=== PATIENT | female | born 1995 | race Caucasian/White ===

== ENCOUNTER 2022-09-05 09:49 | Emergency (ER) | payer OTHER, SELFPAY ==
[2022-09-05 09:53] VITALS: BP 127/86; PULSE 80; RESP 18; TEMP 36.3; O2SAT 97; BMI 43.9
--- NOTE | 2022-09-05 11:09 | CRLHL7_ITS ---
For Patients: As a result of the Century Cures Act, medical imaging exams and procedure reports are released immediately into your electronic medical record. You may view this report before your referring provider. If you have questions, please contact your health care provider. INDICATION: Dysfunctional uterine bleeding TECHNIQUE: Ultrasound pelvis transabdominal and transvaginal for better assessment or to better visualize the endometrium. Real-time sonographic images with spectral and color Doppler imaging of the ovaries were obtained. COMPARISON: None FINDINGS: Uterus: 9.8 x 3.5 x 5.8 cm. Normal echotexture of the myometrium. No masses. Endometrium: Transvaginal imaging was performed to better evaluate the endometrium. Endometrial thickness measures 5 mm. No sign of endometrial mass or fluid. There is likely a small subendometrial cyst in the lower uterine segment. Right ovary measures 3.7 x 1.8 x 1.7 cm and left ovary measures 3.6 x 1.8 x 2.6 cm. There is a likely developing dominant follicle within the left ovary measuring 2.0 centimeters. Otherwise, the left ovary is markedly limited in evaluation due to overlying bowel gas. Normal arterial and venous blood flow is demonstrated in both ovaries. Cul-de-sac: No significant free fluid. IMPRESSION: Limited evaluation of the left ovary due to bowel gas. Likely dominant follicle within the left ovary appreciated. Otherwise, no acute abnormality is seen. Dictated by Adilson Carrasquillo MD @ 09/05/2022 12:45:55 PM (Electronically Signed)
--- NOTE | 2022-09-05 11:11 | ED_ITS ---
HPI - General Adult General Chief complaint: Vaginal Bleeding Stated complaint: Pelvic pain/vaginal bleeding Time Seen by Provider: 09/05/22 10:58 History of Present Illness HPI narrative: This 27-year-old female comes in with recurrent vaginal bleeding. She states that she began having persistent bleeding about 3 months ago. After about 6 weeks of this she saw an OBGYN physician who started her on control pills. This normalized her bleeding for about 2 weeks. She states she is now been bleeding on and off over the past 4 weeks and this morning had a large clot with severe cramping. She passed this clot in her symptoms have improved. Related Data Home Medications Medication Instructions Recorded Confirmed levonorgestrel-ethinyl estradiol 1 tab PO DAILY 09/05/22 09/05/22 0.1 mg-20 mcg tablet (Vienva) semaglutide 0.25 mg or 0.5 mg (2 0.25 mg subcut .09/05/22 09/05/22 mg/1.5 mL) subcutaneous pen injector (Ozempic) Previous Rx's Medication Instructions Recorded medroxyprogesterone 10 mg tablet 10 mg PO TID PRN #20 tabs 09/05/22 (Provera) Allergies Allergy/AdvReac Type Severity Reaction Status Date / Time shrimp Allergy Severe Anaphylaxis Verified 09/05/22 09:59 amoxicillin Allergy Mild hives Verified 09/05/22 09:59 clindamycin Allergy Mild Hives Verified 09/05/22 09:59 Review of Systems Status of ROS: Reports: 10 or more systems reviewed and unremarkable except as noted in History and below Narrative: Constitutional: No fevers, no weight gain or loss. Eyes: No discharge. No vision changes. HENT: No congestion, no sore throat, no ear pain. Cardiovascular: No chest pain, no palpitations. Respiratory: No shortness of breath, no wheezes, no cough. Gastrointestinal: No vomiting, no diarrhea. Crampy abdominal pain as described above. Genitourinary: No dysuria, no hematuria. Dysfunctional vaginal bleeding. Musculoskeletal: Normal range of motion. Skin: No rashes, no pruritis. Neurological: No dizziness, weakness, sensory change, speech change. Endo/Heme/Allergies: No bruising or bleeding. No polydipsia. Pysch: no suicidality, no anxiety, no insomnia. All other systems reviewed and are negative. PFSH PFSH Social History Smoking Status: Never smoker Exam Narrative: Exam Narrative: Constitutional: Well-developed, well-nourished, no acute distress. HEENT: Normocephalic, atraumatic. Neck: Normal range of motion. Nontender. Supple. Heart: Regular. No murmurs. Normal rate. Intact distal pulses. Lungs: Clear to auscultation. No chest discomfort. No wheezes, rhonchi, or rales. Abdomen: Normal bowel sounds. Nontender. No rebound tenderness. Genitalia: Deferred. Back: No midline tenderness. Normal range of motion. Extremities: Normal range of motion. No injury. Skin: Intact. No rash. Warm. No erythema or pallor. Neurologic: No altered sensation. No weakness. Alert and oriented. Psychiatric: No suicidality. No anxiety or depression. No insomnia. Nursing notes and vitals signs are reviewed. Const: Vital Signs, click to edit/add: Vital Signs - 24 hr 09/05/22 09:53 Temperature 97.4 F L Pulse Rate [Right Pulse Oximeter] 80 Respiratory Rate 18 Blood Pressure [Ri ght Upper Arm] 127/86 Pulse Oximetry 97 Oxygen Delivery Me thod Room Air Course Vital Signs Vital signs: Initial Vital Signs Temperature 97.4 F L 09/05/22 09:53 Temperature Source Temporal Artery Scan 09/05/22 09:53 Pulse Rate 80 09/05/22 09:53 Respiratory Rate 18 09/05/22 09:53 Blood Pressure 127/86 09/05/22 09:53 Blood Pressure Mean 99 09/05/22 09:53 Blood Pressure Position Sitting 09/05/22 09:53 Pulse Oximetry 97 09/05/22 09:53 Oxygen Delivery Method 09/05/22 09:53 Vital Signs Temperature 97.4 F L 09/05/22 09:53 Pulse Rate 80 09/05/22 09:53 Respiratory Rate 18 09/05/22 09:53 Blood Pressure 127/86 09/05/22 09:53 Pulse Oximetry 97 09/05/22 09:53 Oxygen Delivery Method 09/05/22 09:53 Temperature 97.4 F L 09/05/22 09:53 Pulse Rate 80 09/05/22 09:53 Respiratory Rate 18 09/05/22 09:53 Blood Pressure 127/86 09/05/22 09:53 Pulse Oximetry 97 09/05/22 09:53 Oxygen Delivery Method 09/05/22 09:53 Medical Decision Making MDM Narrative Medical decision making narrative: This 27-year-old female comes in with dysfunctional uterine bleeding that was significantly worse today. She is taking a low-dose control which helped temporarily. Today her lab results returned with reassuring findings. Her hemoglobin is in normal range. Ultrasound of the pelvis also shows no acute findings that are remarkable. I did speak with the OBGYN physician on-call, Dr. Lal, who recommended follow-up with the primary physician to be on a larger dose of control and for now a prescription of Provera 10 mg is provided. She can take this up to 3 times a day as needed to control or possibly stop the bleeding. Lab Data Labs: Lab Results 09/05/22 09/05/22 09/05/22 Range/Units 11:20 11:20 11:20 WBC 10.93 (4.50-11.00) K/uL RBC 4.92 (4.00-5.20) m/uL Hgb 13.5 (12.0-16.0) gm/dL Hct 42.8 (33.0-51.0) % MCV 87 (80-100) fL MCH 27 (26-34) pg MCHC 32 (32-36) gm/dL RDW Coeff of Juwan 13.0 (11.5-15.5) % Plt Count 331 (140-440) K/uL Neut % (Auto) 77.9 H (42.0-72.0) % Lymph % (Auto) 17.5 L (20-44) % [place] % (Auto) 4.2 (0.0-11.0) % Eos % (Auto) 0.2 (0.0-7.0) % Baso % (Auto) 0.1 (0.0-3.0) % Neut # (Auto) 8.50 H (1.7-7.0) K/uL Lymph # (Auto) 1.90 (0.90-2.90) K/uL [place] # (Auto) 0.50 (0.00-0.90) K/UL Eos # (Auto) 0.02 (0.00-0.50) K/uL Baso # (Auto) 0.01 (0.00-0.30) K/uL Sodium 139 (135-149) mmol/L Potassium 4.4 (3.6-5.1) mmol/L Chloride 108 (96-114) mmol/L Carbon Dioxide 24 (20-32) mmol/L BUN 10 (5-24) mg/dL Creatinine 0.4 L (0.5-1.5) mg/dL Estimated Creat Clear 171.66 Estimated GFR 137 ml/min Glucose 127 H (60-115) mg/dL Calcium 8.7 (8.4-10.6) mg/dL HCG, Qual Negative (Negative) Imaging Data US Pelvic: Radiologist's impression: FINDINGS: Uterus: 9.8 x 3.5 x 5.8 cm. Normal echotexture of the myometrium. No masses. Endometrium: Transvaginal imaging was performed to better evaluate the endometrium. Endometrial thickness measures 5 mm. No sign of endometrial mass or fluid. There is likely a small subendometrial cyst in the lower uterine segment. Right ovary measures 3.7 x 1.8 x 1.7 cm and left ovary measures 3.6 x 1.8 x 2.6 cm. There is a likely developing dominant follicle within the left ovary measuring 2.0 centimeters. Otherwise, the left ovary is markedly limited in evaluation due to overlying bowel gas. Normal arterial and venous blood flow is demonstrated in both ovaries. Cul-de-sac: No significant free fluid. IMPRESSION: Limited evaluation of the left ovary due to bowel gas. Likely dominant follicle within the left ovary appreciated. Otherwise, no acute abnormality is seen. Discharge Plan Discharge Clinical Impression: Dysfunctional uterine bleeding Patient Disposition: Home, Self-Care Condition: Stable Additional Instructions: Take Provera 10 mg up to 3 times a day for dysfunctional uterine bleeding. Follow-up with primary physician to review medications. It is recommended to have a larger dose of control medication. Prescriptions: New medroxyprogesterone [Provera] 10 mg tablet 10 mg PO TID PRNQty: 20 2RF No Action levonorgestrel-ethinyl estrad [Vienva] 0.1-20 mg-mcg tablet 1 tab PO DAILY Ozempic 0.25 mg or 0.5 mg(2 mg/1.5 mL) pen injector 0.25 mg SUBCUT . Label Comments: INJECT 0.25 MG SUBCUTANEOUS ONCE WEEKLY FOR THE 1ST 4 WEEKS. THEN INJECT 0.5 MG SUBCUTANEOUS ONCE WEEKLY FOR WEEKS 5-8 Follow Up/Referrals: Anabel Fernandez MD [Primary Care Provider] - Stand Alone Forms: [employer] Info Instructions
[2022-09-05 11:28] LABS: Basophils Absolute Auto 0.01 K/uL (0.00-0.30); Basophils Percent Auto 0.1 % (0.0-3.0); Eosinophils Absolute Auto 0.02 K/uL (0.00-0.50); Eosinophils Percent Auto 0.2 % (0.0-7.0); Hematocrit 42.8 % (33.0-51.0); Hemoglobin* 13.5 gm/dL (12.0-16.0); Immature Granulocytes Abs Auto 0.01 K/uL (0.00-0.30); Immature Granulocytes Pct Auto 0.1 %; Lymphocytes Percent Auto 17.5 % (20-44); Mean Corpuscular HGB Conc 32 gm/dL (32-36); Mean Corpuscular Hemoglobin 27 pg (26-34); Mean Corpuscular Volume 87 fL (80-100); Monocytes Percent Auto 4.2 % (0.0-11.0); Neutrophils Percent Auto 77.9 % (42.0-72.0); Platelet Count* 331 K/uL (140-440); Red Blood Count 4.92 m/uL (4.00-5.20); White Blood Count* 10.93 K/uL (4.50-11.00)
[2022-09-05 11:30] LABS: Slide Review Reflex No
[2022-09-05 11:40] LABS: Chloride* 108 mmol/L (96-114); Potassium* 4.4 mmol/L (3.6-5.1); Sodium* 139 mmol/L (135-149)
[2022-09-05 11:43] LABS: Blood Urea Nitrogen* 10 mg/dL (5-24); Carbon Dioxide* 24 mmol/L (20-32); Creatinine* 0.4 mg/dL (0.5-1.5); Est. Creatinine Clearance* 171.66; Estimated Glomerular Filt Rate 137 ml/min; Glucose* 127 mg/dL (60-115)
[2022-09-05 11:44] LABS: Calcium* 8.7 mg/dL (8.4-10.6)
[2022-09-05 11:59] LABS: HCG Qualitative Serum* Negative (Negative)
== END 2022-09-05 14:18 | disposition home or self-care (01) ==
PROVIDERS: Emergency Provider Emergency Medicine Emergency Medical Services; PCP Family Medicine
DX: N93.8 Other specified abnormal uterine and vaginal bleeding (principal)
CPT/HCPCS: 36415; 76830; 80048; 84703; 85025; 93976; 99284

== ENCOUNTER 2024-01-23 10:17 | Emergency (ER) | payer OTHER, SELFPAY ==
[2024-01-23 10:19] VITALS: BP 163/94; PULSE 77; RESP 20; TEMP 36.4; O2SAT 98; BMI 44.8
--- NOTE | 2024-01-23 10:49 | ED_ITS ---
HPI - Abdominal Pain General Chief Complaint: Abdominal Pain Stated Complaint: Severe abdominal pain Time Seen by Provider: 01/23/24 10:34 History of Present Illness HPI narrative: This 28-year-old female comes in with rather sudden onset of upper epigastric abdominal pain starting about 90 minutes prior to arrival. She states that she took a injection of Mounjaro and soon after this she began to develop this upper epigastric abdominal pain. She states that she has not had pain like this in the past and thinks that this could be reaction to this medicine. She states that she took a dose of this same medicine a week ago without any symptoms. She states also that she has been on Ozempic in the past and did not have any adverse effects when taking that medicine. She arrives here with normal vital signs except blood pressure is a bit elevated. Related Data Home Medications ?Medication ?Instructions ?Recorded ?Confirmed levonorgestrel-ethinyl estradiol 1 tab PO DAILY 09/05/22 09/05/22 0.1 mg-20 mcg tablet (Vienva) semaglutide 0.25 mg or 0.5 mg (2 0.25 mg subcut .09/05/22 09/05/22 mg/1.5 mL) subcutaneous pen injector (Ozempic) Previous Rx's ?Medication ?Instructions ?Recorded medroxyprogesterone 10 mg tablet 10 mg PO TID PRN #20 tabs 09/05/22 (Provera) hydrocodone 5 mg-acetaminophen 325 1 tab PO Q4-6H PRN pain #20 tabs 01/23/24 mg tablet ketorolac 10 mg tablet 10 mg PO TID 5 days #15 tabs 01/23/24 Allergies Allergy/AdvReac Type Severity Reaction Status Date / Time shrimp Allergy Severe Anaphylaxis Verified 09/05/22 09:59 amoxicillin Allergy Mild hives Verified 09/05/22 09:59 clindamycin Allergy Mild Hives Verified 09/05/22 09:59 Review of Systems Status of ROS Reports: 10 or more systems reviewed and unremarkable except as noted in History and below Narrative Constitutional: No fevers, no weight gain or loss. Eyes: No discharge. No vision changes. HENT: No congestion, no sore throat, no ear pain. Cardiovascular: No chest pain, no palpitations. Respiratory: No shortness of breath, no wheezes, no cough. Gastrointestinal: No vomiting, no diarrhea. She reports some nausea. Upper epigastric abdominal pain as described above. Genitourinary: No dysuria, no hematuria. Musculoskeletal: Normal range of motion. Skin: No rashes, no pruritis. Neurological: No dizziness, weakness, sensory change, speech change. Endo/Heme/Allergies: No bruising or bleeding. No polydipsia. Pysch: no suicidality, no anxiety, no insomnia. All other systems reviewed and are negative. PFSH PFS Social History Smoking Status: Never smoker Non-prescribed substance use: denies use Exam Narrative: Exam Narrative: Constitutional: Well-developed, well-nourished, no acute distress. HEENT: Normocephalic, atraumatic. Neck: Normal range of motion. Nontender. Supple. Heart: Regular. No murmurs. Normal rate. Intact distal pulses. Lungs: Clear to auscultation. No chest discomfort. No wheezes, rhonchi, or rales. Abdomen: Normal bowel sounds. No rebound tenderness. Upper epigastric abdominal pain. Genitalia: Deferred. Back: No midline tenderness. Normal range of motion. Extremities: Normal range of motion. No injury. Skin: Intact. No rash. Warm. No erythema or pallor. Neurologic: No altered sensation. No weakness. Alert and oriented. Psychiatric: No suicidality. No anxiety or depression. No insomnia. Nursing notes and vitals signs are reviewed. Const: Vital Signs, click to edit/add: Vital Signs - 24 hr 01/23/24 10:19 01/23/24 13:00 Temperature 97.6 F Pulse Rate [Right Pulse Oximeter] 77 72 Respiratory Rate 20 18 Blood Pressure [Ri ght Upper Arm] 163/94 H 120/78 Pulse Oximetry 98 98 Oxygen Delivery Me thod Room Air Room Air Course Vital Signs Vital signs: Initial Vital Signs Temperature 97.6 F 01/23/24 10:19 Temperature Source Temporal Artery Scan 01/23/24 10:19 Pulse Rate 77 01/23/24 10:19 Respiratory Rate 20 01/23/24 10:19 Blood Pressure 163/94 H 01/23/24 10:19 Blood Pressure Mean 117 H 01/23/24 10:19 Blood Pressure Position Sitting 01/23/24 10:19 Pulse Oximetry 98 01/23/24 10:19 Oxygen Delivery Method Room Air 01/23/24 10:19 Vital Signs Temperature 97.6 F 01/23/24 10:19 Pulse Rate 77 01/23/24 10:19 Respiratory Rate 20 01/23/24 10:19 Blood Pressure 163/94 H 01/23/24 10:19 Pulse Oximetry 98 01/23/24 10:19 Oxygen Delivery Method Room Air 01/23/24 10:19 Temperature 97.6 F 01/23/24 10:19 Pulse Rate 72 01/23/24 13:00 Respiratory Rate 18 01/23/24 13:00 Blood Pressure 120/78 01/23/24 13:00 Pulse Oximetry 98 01/23/24 13:00 Oxygen Delivery Method Room Air 01/23/24 13:00 Medications Administered Medications: Discontinued Medications Generic Name Dose Route Start Last Admin Trade Name Yanickq PRN Reason Stop Dose Admin Ketorolac Tromethamine 30 mg 01/23/24 11:57 01/23/24 12:30 Ketorolac 30 Mg/Ml Inj IVP 01/23/24 11:58 30 mg ONCE ONE Administration Lidocaine/Aluminum/Magnesium/Simeth 30 ml 01/23/24 10:46 01/23/24 11:34 Gi Cocktail (Visc Lido/Antacid) 30 Ml PO 01/23/24 10:47 30 ml ONCE ONE Administration Ondansetron HCl 4 mg 01/23/24 11:57 01/23/24 12:30 Ondansetron 2 Mg/Ml Inj IVP 01/23/24 11:58 4 mg ONCE ONE Administration MDM - Abdominal Pain MDM Narrative Medical decision making narrative: This patient comes in with abdominal pain as described above. It did seem to be more like a gastritis initially so she did agree to receive a GI cocktail which did not bring any relief for her. At that point an IV was established and labs are acquired. She also received Toradol 30 mg intravenously which brought good relief to her pain. Lab results returned with some elevation of her liver enzymes and direct bilirubin. The patient states that she does not take alcohol. Her lipase is in normal range. An ultrasound of the right upper quadrant is obtained and does show evidence of uncomplicated coli lithiasis. There is no sign of obstruction or infection. I relayed these findings to the patient and recommended follow-up with surgery Clinic for ongoing management of gallstones which may be causing her symptoms today. There are no other findings to explain her symptoms except a new medication, Mounjara for weight loss, that she injected herself with this morning. This was her 2nd dose as it is an injectable medicine once a week. Lab Data Labs: Lab Results 01/23/24 Range/Units 12:22 WBC 8.42 (4.50-11.00) K/uL RBC 4.88 (4.00-5.20) m/uL Hgb 13.5 (12.0-16.0) gm/dL Hct 42.3 (33.0-51.0) % MCV 87 (80-100) fL MCH 28 (26-34) pg MCHC 32 (32-36) gm/dL RDW Coeff of Juwan 13.6 (11.5-15.5) % Plt Count 288 (140-440) K/uL Neut % (Auto) 61.8 (42.0-72.0) % Lymph % (Auto) 30.0 (20-44) % Levy % (Auto) 7.6 (0.0-11.0) % Eos % (Auto) 0.5 (0.0-7.0) % Baso % (Auto) 0.1 (0.0-3.0) % Neut # (Auto) 5.20 (1.7-7.0) K/uL Lymph # (Auto) 2.53 (0.90-2.90) K/uL Levy # (Auto) 0.60 (0.00-0.90) K/UL Eos # (Auto) 0.04 (0.00-0.50) K/uL Baso # (Auto) 0.01 (0.00-0.30) K/uL Abs Immat Gran (auto) 0.00 (0.00-0.30) K/uL Imm/Tot Granulo (auto) 0.0 % Sodium 139 (135-149) mmol/L Potassium 3.7 (3.6-5.1) mmol/L Chloride 105 (96-114) mmol/L Carbon Dioxide 27 (20-32) mmol/L Anion Gap 7 (7-15) mEq/L BUN 9 (5-24) mg/dL Creatinine 0.4 L (0.5-1.5) mg/dL Estimated Creat Clear 170.12 Estimated GFR 136 ml/min Glucose 113 (60-115) mg/dL Calcium 8.7 (8.4-10.6) mg/dL Total Bilirubin 1.1 (0.1-1.5) mg/dL Direct Bilirubin 0.7 H (0.0-0.5) mg/dL AST 145 H (12-35) U/L ALT 97 H (4-35) U/L Alkaline Phosphatase 107 (40-150) U/L Total Protein 7.4 (6.0-8.3) g/dL Albumin 4.3 (3.3-5.0) g/dL Lipase 78 (23-300) U/L Discharge Plan Discharge Clinical Impression: Cholelithiasis Patient Disposition: Home, Self-Care Condition: Improved Additional Instructions: Take medication as needed and indicated. I recommend following up with surgery Clinic for ongoing plans for gallstones. Call [phone] for appointment. Return if worsening. Prescriptions: New hydrocodone-acetaminophen 5-325 mg tablet 1 tab PO Q4-6H PRN (Reason: pain) Qty: 20 0RF ketorolac 10 mg tablet 10 mg PO TID 5 Days Qty: 15 0RF No Action levonorgestrel-ethinyl estrad [Vienva] 0.1-20 mg-mcg tablet 1 tab PO DAILY Ozempic 0.25 mg or 0.5 mg(2 mg/1.5 mL) pen injector 0.25 mg SUBCUT . Patient Comments: INJECT 0.25 MG SUBCUTANEOUS ONCE WEEKLY FOR THE 1ST 4 WEEKS. THEN INJECT 0.5 MG SUBCUTANEOUS ONCE WEEKLY FOR WEEKS 5-8 medroxyprogesterone [Provera] 10 mg tablet 10 mg PO TID PRNQty: 20 2RF Follow Up/Referrals: Anabel Fernandez MD [Referring] - Stand Alone Forms: [employer] Info Instructions
--- OUTSIDE RECORDS SUMMARY | 2024-01-23 10:58 | XMS_ITS | Clinical Summary ---
Author Organization [facility] Address [address], [place] [address] Care Team Providers Care Evp Chief Exploration Officer Name Role Phone Unavailable Primary Care Provider Unavailabl e Source Comments You are receiving this document as you are listed as the primary care provider,follow-up provider, or the patient has been referred to you for consultation.This is in compliance with the Medicare andMedicaid EHR Incentive Program,which states Providers who transition their patient to another setting of careor provider of care or refers their patient to another provider of care shouldprovide summary care record for each transition of care or referral. CX Allergies Active Allergy Reactions Criticality Noted Date Comments Amoxicillin Hives High 11/07/2010 Converted from Generic Allergy: Amoxicillin Clindamycin Hives High 12/19/2014 Medications Medication Sig Dispensed Refills Start Date End Date Status metFORMIN XR (GLUCOPHAGE XR) 500 MG 24 hour release tablet Take 1 Tablet (500 mg) by mouth daily. Active OZEMPIC, 0.25/0.5 MG/DOSE, 2 MG/1.5ML injection Inject subcutaneously. Active norgestimate-ethinyl estradiol (ORTHO TRI-CYCLEN) 0.18/0.215/0.25 MG-35 MCG tablet Take 1 Tablet by mouth daily. 90 Tablet 09/23/2022 Active Active Problems No known active problems Social History Tobacco Use Types Packs/Day Years Used Date Smoking Tobacco: Never Smokeless Tobacco: Never Tobacco Cessation:Counseling Given: Not Answered Sex and Gender Information Value Date Recorded Sex Assigned at Not on file Gender Identity Not on file Sexual Orientation Not on file Last Filed Vital Signs Vital Sign Reading Time Taken Comments Blood Pressure 138/94 11/22/2022 12:10 PM CDT Pulse 91 11/22/2022 12:10 PM CDT Temperature - - Respiratory Rate 16 11/22/2022 12:10 PM CDT Oxygen Saturation 99% 11/22/2022 12:10 PM CDT Inhaled Oxygen Concentration - - Weight - - Height - - Body Mass Index - - Plan of Treatment Health Maintenance Due Date Last Done Comments Cervical Cancer Screening Due 1993 Hep C Screening (Preventive Services) 1993 HIV Screening (Preventive Services) 2009 Adult Preventive Visit 2011 HepB (1) 2012 COVID-19 Vaccine (3 - season) 2023 10/01/2020, 09/03/2020 Influenza (Season Ended) 2024 023, 05/05/2021, 06/20/2020, Additional history exists DTaP/Tdap/Td (8 - Tdap) 08/24/2031 08/24/19 22, 06/27/2011, 01/08/1999, Additional history exists Zoster/Shingles (1 of 2) 2043 Hib Completed 05/25/1996, 09/29, 1993, Additional history exists IPV (Polio) Completed 12/29/1998, 03/1994, 1993, Additional history exists MCV4 Completed 06/27/2011 Pneumococcal Aged Out 07/22/2015 No longer eligi ble based on patient's age to complete this topic HepA Aged Out 11/25/2015, 01/02/2015 No lo nger eligible based on patient's age to complete this topic HPV Vaccine Aged Out No longer eligi ble based on patient's age to complete this topic
[2024-01-23] MEDS: GI COCKTAIL (VISC LIDO/ANTACID) 30 ML PO (11:34)
[2024-01-23] MEDS: ONDANSETRON 2 MG/ML inj 4 MG IVP (12:30)
[2024-01-23] MEDS: KETOROLAC 30 MG/ML inj IVP (12:30)
[2024-01-23 12:36] LABS: Basophils Absolute Auto 0.01 K/uL (0.00-0.30); Basophils Percent Auto 0.1 % (0.0-3.0); Eosinophils Absolute Auto 0.04 K/uL (0.00-0.50); Eosinophils Percent Auto 0.5 % (0.0-7.0); Hematocrit 42.3 % (33.0-51.0); Hemoglobin* 13.5 gm/dL (12.0-16.0); Lymphocytes Absolute Auto 2.53 K/uL (0.90-2.90); Mean Corpuscular HGB Conc 32 gm/dL (32-36); Mean Corpuscular Hemoglobin 28 pg (26-34); Mean Corpuscular Volume 87 fL (80-100); Monocytes Percent Auto 7.6 % (0.0-11.0); Neutrophils Percent Auto 61.8 % (42.0-72.0); Platelet Count* 288 K/uL (140-440); RDW Coefficient of Variation % 13.6 % (11.5-15.5); Red Blood Count 4.88 m/uL (4.00-5.20); White Blood Count* 8.42 K/uL (4.50-11.00)
[2024-01-23 12:40] LABS: Slide Review Reflex No
[2024-01-23 12:44] LABS: Albumin* 4.3 g/dL (3.3-5.0); Chloride* 105 mmol/L (96-114)
[2024-01-23 12:45] LABS: Potassium* 3.7 mmol/L (3.6-5.1); Sodium* 139 mmol/L (135-149)
[2024-01-23 12:47] LABS: Alkaline Phosphatase* 107 U/L (40-150); Anion Gap 7 mEq/L (7-15); Aspartate Amino Transferase* 145 U/L (12-35); Bilirubin Direct* 0.7 mg/dL (0.0-0.5); Bilirubin Total* 1.1 mg/dL (0.1-1.5); Blood Urea Nitrogen* 9 mg/dL (5-24); Carbon Dioxide* 27 mmol/L (20-32); Creatinine* 0.4 mg/dL (0.5-1.5); Est. Creatinine Clearance* 170.12; Estimated Glomerular Filt Rate 136 ml/min; Glucose* 113 mg/dL (60-115); Lipase* 78 U/L (23-300); Total Protein* 7.4 g/dL (6.0-8.3)
[2024-01-23 12:48] LABS: Alanine Aminotransferase* 97 U/L (4-35); Calcium* 8.7 mg/dL (8.4-10.6)
--- NOTE | 2024-01-23 12:55 | CRLHL7_ITS ---
For Patients: As a result of the Century Cures Act, medical imaging exams and procedure reports are released immediately into your electronic medical record. You may view this report before your referring provider. If you have questions, please contact your health care provider. Indication: Upper abdominal pain. Technique: Sonography of the abdomen was performed limited to the structures discussed below Comparison: None Findings: The common bile duct measures 2 millimeters which is normal. Gallbladder wall thickness is normal at 3 millimeters. There is probably a small focal area of adenomyomatosis involving the anterior wall of the gallbladder. Stones are identified within the gallbladder. No pericholecystic fluid and no reported sonographic Adkins`s sign. The liver is normal in size and morphology. Echogenicity is abnormally increased probably due to fatty infiltration. No biliary ductal dilation or focal mass The pancreas was visualized partially and appeared normal. Portions are obscured by bowel gas. The right kidney was unremarkable in size and appearance measuring 14.2 x 4.7 x 6.2 centimeters. Impression: Abnormal hepatic echotexture probably due to fatty infiltration. Cholelithiasis without evidence of acute cholecystitis or common duct obstruction. Probable focal area of adenomyomatosis involving the gallbladder wall incidentally noted. Dictated by Reed Woodward MD @ 01/23/2024 1:52:53 PM (Electronically Signed)
[2024-01-23 13:00] VITALS: BP 120/78; PULSE 72; RESP 18; O2SAT 98
== END 2024-01-23 15:16 | disposition home or self-care (01) ==
PROVIDERS: Emergency Provider Emergency Medicine Emergency Medical Services
DX: K80.80 Other cholelithiasis without obstruction (principal)
CPT/HCPCS: 36415; 76705; 80048; 80076; 83690; 85025; 96374; 96375; 99284; A9270; J1885; J2405

== ENCOUNTER 2024-02-05 08:12 | Day surgery (SDC) | payer OTHER, SELFPAY ==
[2024-02-05] VITALS (15 sets, daily range): BP systolic 106–158; BP diastolic 72–94; PULSE 79–105; RESP 14–16; TEMP 36.1–36.7; O2SAT 90–98; BMI 43.7
[2024-02-05] MEDS: LACTATED RINGERS 1000 ML 1,000 ML 100 ML IV (08:00)
--- OUTSIDE RECORDS SUMMARY | 2024-02-05 08:16 | XMS_ITS | Clinical Summary ---
Author Organization [facility] Address [address] [address] Care Team Providers Care Missile Facilities Repairer Name Role Phone Unavailable Primary Care Provider [...] for each transition of care or referral. [employer] Allergies Active Allergy Reactions Criticality Noted Date [...] Visit 2011 HepB (1) 2012 COVID-19 Vaccine ( season) 2023 10/01/2020, 09/03/2020 Influenza (#1) 2024 08/03/2022, 12/2020, 06/20/2020, Additional history exists DTaP/Tdap/Td (8 - Tdap) 08/24/2031 08/24/19, 06/27/2011, 01/08/1999, Additional history exists Zoster/Shingles (1 [...]
[2024-02-05 08:36] LABS: Ur HCG Qualitative* Negative (Negative)
--- NOTE | 2024-02-05 08:51 | P.GSOP_ITS ---
Operative Note Date of procedure: 02/05/24 Pre-op diagnosis: 1. Biliary colic. 2. Severe obesity with BMI 43. Post-op diagnosis: Same Type of Procedure: 1. Laparoscopic cholecystectomy. Indications: 28-year-old female 5 months was seen in clinic for evaluation of severe sharp and shooting pain in her epigastrium the started after eating fatty breakfast. The pain was radiating to bilateral upper quadrants and to her back. Patient was seen in the emergency room initially. The pain subsided during the ER visit and was mostly dull but then she had another episode of sharp shooting pain while in the emergency room. Since the emergency room visit, patient had at least 2 milder episodes of similar pain in epigastrium that woke her up from sleep at night. Patient denied acid reflux. She did not have any similar episodes of pain during her but states that she did not feel well during her in general. Patient states that for the last few weeks she has not been feeling well in general. She has at least 5 loose stools per day. She has been taking Mounjaro for the past 3 weeks. During her workup she was found to have normal WBC of 8.4. Liver function tests showed direct bilirubin 0.7, total bilirubin was normal, AST 145, ALT 97, normal lipase. Her previous liver function tests on 01/15/2024 were completely normal. A gallbladder ultrasound was obtained that showed cholelithiasis, gallbladder wall was at the upper limits of normal at 2.6 mm, there was no pericholecystic fluid, the liver was noted to be fatty, and there was a small focus of adenomyomatosis at the anterior wall of the gallbladder. Patient's common bile duct was normal. On clinical exam patient had no tenderness to palpation in the right upper quadrant and negative Adkins sign. She had mild tenderness to palpation in epigastrium. Given patient's clinical history and her symptoms, laparoscopic cholecystectomy was recommended. The procedure was discussed in detail. The risks associated procedure including infection, bleeding, injury to intra-abdominal organs, and injury to the common bile duct were all discussed with the patient, and she agreed to proceed. Given patient's normal common bile duct size on ultrasound and absence of pain since her clinic visit, intraoperative cholangiogram was not planned. Procedure Description: After discussing the risks and benefits of the procedure, the patient signed informed consent.? The operative site was marked and the patient was brought to the operating room and placed on the operating table in supine position.? Care was taken to pad the patient's pressure points.?? The patient was then intubated by anesthesia.?? The operative site was then prepped and draped in the usual sterile fashion.? A time-out was then performed. A 5-mm laparoscopy port was placed in the left upper quadrant guided by a 5-mm laparoscope placed into a translucent trochar.~ Passage through the layers of the abdominal wall was visualized with the laparoscope.~ A pneumoperitoneum was established. A 0-degree 5-mm laparoscope was advanced into the abdomen. The abdomen was briefly surveyed, and omental adhesions were noted suprapubically. A 10-mm port were placed infraumbilically and two more 5 mm ports were placed on the right under direct visualization by laparoscope. The camera was then changed to 10 mm 30-degree scope and placed into the abdomen through the 10 mm port. The left upper quadrant port entrance was examined and no injury to intra-abdominal organs was identified. I initially was not able to identify the gallbladder. Subhepatic space was examined and fatty omentum was adherent to entire gallbladder wall. Those fatty omental adhesions were taken down with hook cautery. I was then able to identify a small collapsed gallbladder. The gallbladder was identified, the fundus grasped and retracted cephalad. The infundibulum was grasped and retracted laterally, exposing the peritoneum overlying the triangle of Calot. This was then divided and exposed in a blunt fashion and with hook cautery. The visualization was difficult throughout the case given patient's large fatty liver and collapsed small gallbladder. Common bile duct was not identified but care was taken not to injure it. Cystic artery was identified and tissues around it were dissected off. The cystic artery was clipped with two 5 mm clips on the patient's side and a single clip on the specimen side and divided with scissors. The cystic duct was further skeletonized staying close to the gallbladder infundibulum. The visualized portion of the cystic duct was fairly short and it was clipped with three 5 mm clips on the patient's side and a single clip on the infundibulum. The gallbladder infundibulum was then divided between the clips. The gallbladder was further dissected off the liver with hook cautery. The gallbladder was dissected from the liver bed in retrograde fashion using hookcautery. The gallbladder was placed into an Endo-Catch bag and removed through the infraumbilical incision. Surgical site was examined for bleeding. No bleeding was seen in the surgical field. The fascia of the infraumbilical incision was then closed with 0-0 vicryl using Kelechi Joya needle under direct visualization. Pneumoperitoneum was completely reduced after viewing removal of the trocars under direct vision. The skin was then closed with 4-0 monocryl and steristrips were applied. Instrument, sponge, and needle counts were correct at closure and at the conclusion of the case. The patient was transferred to PACU in stable condition. Findings: Omental adhesions in the inferior abdomen most likely from patient's recent C- section. Omental adhesions to the gallbladder encasing the gallbladder wall. Those were taken down with hook cautery and a collapsed small gallbladder was identified. Anesthesia: GETA Surgeon: Elgin Hagen MD Estimated blood loss (mL): 5 Specimen: Gallbladder Condition: stable Disposition: PACU
--- NOTE | 2024-02-05 08:51 | W.PM.H&PU ---
History & Physical Update History & Physical Update H&P Reviewed and patient assessed: No changes noted
[2024-02-05] MEDS: CEFAZOLIN 2 GM INJ IVP (09:15)
[2024-02-05] MEDS: BUPIVACAINE 0.25% 30 ML INJECTION (10:19)
--- NOTE | 2024-02-05 10:20 | W.ANESCHARGE ---
Anesthesia Charges Start Date/Time Anesthesia Start Date: 02/05/24 Anesthesia Start Time: 09:05 Stop Date/Time Anesthesia Stop Date: 02/05/24 Anesthesia Stop Time: 10:42
[2024-02-05] MEDS: LACTATED RINGERS 1000 ML 1,000 ML 35 ML IV (10:49)
--- NOTE | 2024-02-05 10:55 | W.ANESCHARGE ---
Anesthesia Charges Start Date/Time Anesthesia Start Date: 02/05/24 Anesthesia Start Time: 09:05 Stop Date/Time Anesthesia Stop Date: 02/05/24 Anesthesia Stop Time: 10:42
[2024-02-05] MEDS: fentaNYL 100 MCG/2 ML inj 50 MCG IVP (11:27)
[2024-02-05] MEDS: METOCLOPRAMIDE HCL 5 MG/ML INJ 10 MG IVP (12:15)
== END 2024-02-05 12:55 | disposition home or self-care (01) ==
PROVIDERS: Visit Provider Surgery
PROC: 0FT44ZZ Resection of Gallbladder, Percutaneous Endoscopic Approach (ICD-10-PCS; CPT 47562; principal; 2024-02-05 09:30)
DX: K80.20 Calculus of gallbladder without cholecystitis without obstruction (principal); E66.01 Morbid (severe) obesity due to excess calories; K66.0 Peritoneal adhesions (postprocedural) (postinfection); Z68.41 Body mass index [BMI] 40.0-44.9, adult; E11.9 Type 2 diabetes mellitus without complications
CPT/HCPCS: 47562; 00790; 81025; 82962; 84703; 88304; J0330; J0665; J0690; J1100; J1630; J1885; J2250; J2405; J2704; J2765; J3010; J3490; J7120

== ENCOUNTER 2025-04-02 17:51 | Emergency (ER) | payer OTHER, SELFPAY ==
[2025-04-02 17:54] VITALS: BP 140/82; PULSE 89; RESP 20; TEMP 36.3; O2SAT 98; BMI 43.3
--- OUTSIDE RECORDS SUMMARY | 2025-04-02 17:54 | XMS_ITS | Clinical Summary ---
[facility] Organization [facility] Address [id number] [address] Care Team Providers Care Rn Transfer Name Role Phone Unavailable Primary Care Provider [...] for each transition of care or referral. [facility] [facility] [employer] Allergies Active Allergy Reactions Criticality Noted Date Comments Amoxicillin Hives High 11/07/2010 Converted from Generic Allergy: Amoxicillin Clindamycin Hives High 12/19/2014 Medications metFORMIN XR (GLUCOPHAGE XR) 500 MG 24 hour release tablet Take 1 Tablet (500 mg) by mouth daily. Active OZEMPIC, 0.25/0.5 MG/DOSE, 2 MG/1.5ML injection Inject subcutaneou sly. Active norgestimate-eth inyl estradiol (ORTHO TRI-CYCLEN) 0.18/0.215/0.25 MG-35 MCG tablet Take 1 Tablet by mouth daily. 90 Tablet 09/23/2022 Active Active Problems No known active problems Social History Tobacco Use Types Packs/Day Years Used Date Smoking Tobacco: Never Smokeless Tobacco: Never Tobacco Cessation:Counseling Given: Not Answered Comments Unknown Sex and Gender Information Value Date Recorded Sex Assigned at Not on file Legal Sex Female 11:33 AM CDT Gender Identity Not on file Sexual Orientation [...] Services) 2009 Adult Preventive Visit 2011 HepB Vaccine (1) 2012 HPV Vaccine (1 - 3-dose SCDM series) 2020 COVID-19 Vaccine ( season) 2024 10/01/2020, 09/03/2020 Influenza Vaccine (#1) 2025 , 08/03/2022, 05/05/2021, Additional history exists DTaP/Tdap/Td Vaccine (9 - Tdap) 06/23/2033 06/23/2023, 08/24/2021, 06/27/2011, Additional history exists Zoster/Shingles Vaccine (1 of 2) 2043 Hib Vaccine Completed 05/25/1996, 09/29, 1993, Additional history exists IPV (Polio) Vaccine Completed 12/29/1998, 03/08/1994, 1993, Additional history exists MCV4 Vaccine Completed 06/27/2011 Pneumococcal Vaccine Aged Out 07/22/2015 No long er eligible based on patient's age to complete this topic HepA Vaccine Aged Out 11/25/2015, 01/02/2015 No lo nger eligible based on patient's age to complete this topic Meningococcal B Vaccine Aged Out No l onger eligible based on patient's age to complete this topic Insurance [employer] [facility] [place] [id number]
--- OUTSIDE RECORDS SUMMARY | 2025-04-02 17:54 | XMS_ITS | Clinical Summary ---
Author Organization [employer] [facility] Address [address] [place] [id number] Care Team Providers Care Siebel Consultant Name Role Phone Megan Ayala MD Unavailable Unavailable Aurora Farmer Primary Care Provider Kaia Mascorro RD Unavailable [phone] Luna Moore RN Unavailable [phone] Randa Leon MD Unavailable Allergies Active Allergy Reactions Criticality Noted Date Comments Amoxicillin Hives 11/07/2010 Converted from Generic Allergy: Amoxicillin Clindamycin Hives 12/19/2014 Penicillins Anaphylaxis High 07/07/2012 Shrimp Throat Swelling/Closing High 08/24/2021 Sulfa (Sulfonamide Antibiotics) Hives 11/09/2014 Medications blood-glucose meterIndications :Controlled type 2 diabetes mellitus without complication, without long-term current use of insulin (HC) Dispense meter, test strips, lancets covered by pt ins. E11.9 NIDDM type II - Test 1 time/day 1 Device 12/08/19 21 Active PNV Cmb#[id number] c Acid 14 mg iron- 400 mcg tabIndications:E ncounter for supervision of high risk in first trimester, antepartum (HC) Take 1 Tablet by mouth once daily. 90 Tablet 3 01/14/20 23 Active Accu-Chek Softclix LancetsIndicatio ns:Type 2 diabetes mellitus with other specified complication, without long-term current use of insulin (HC) Dispense item covered by pt ins. O24.319 NIDDM - Test 4 times/day. New medication 100 Each 6 02/15/20 23 Active fluticasone (50 mcg per actuation) nasal solution (FLONASE)Indicat ions:Acute non-recurrent maxillary sinusitis Inhale 2 Sprays in both nostrils once daily. 16 g 3 07/22/20 24 Active docusate (COLACE) 100 mg capsuleIndicatio ns:Chronic constipation Take 1 Capsule (100 mg) by mouth once daily. 90 Capsule 3 07/22/20 24 Active albuterol HFA (ProAir HFA) 90 mcg/actuation inhalerIndicatio ns:Mild persistent asthma with exacerbation (HC) Inhale 2 Puffs by mouth every 6 hours if needed for Shortness of Breath 1st choice. 1 Each 1 07/22/20 24 Active Accu-Chek Guide test strips stripIndications :Type 2 diabetes mellitus with other specified complication, without long-term current use of insulin (HC) USE TO TEST FOUR TIMES DAILY 400 Each 3 12/26/19 25 Active pen needle (Cydney Pen Needle) 32 gauge x 5/32 (disposable insulin pen needle)Indicatio ns:Type 2 diabetes mellitus with other specified complication, without long-term current use of insulin (HC) Inject subcutaneous. For administering insulin at home 4 times per day 200 Each 11 12/27/19 25 Active magnesium 250 mg tab Take 2 Tablets (500 mg) by mouth once daily. 01/04/20 25 Active medication order composer Takes 2 tablets daily containing a total of 1200mg calcium and 40mcg Vitamin D 01/04/20 25 Active acetone (urine) test (Ketostix) stripIndications :Type 2 diabetes mellitus with other specified complication, without long-term current use of insulin (HC) Check every morning for a week, if negative or trace reduce to checking 2-3 days per week. 1 Each 01/07/20 25 Active metFORMIN 500 mg Extended-Release tabletIndication s: with type 2 diabetes mellitus in first trimester (HC) Take 2 Tablets (1,000 mg) by mouth two times daily with meals. 360 Tablet 1 01/11/20 25 Active Dexcom G7 Sensor for continuous blood glucose monitor (CGM)Indications :Type 2 diabetes mellitus without complication, without long-term current use of insulin (HC) To be used to read blood sugars, follow purification operator helper directions. 9 Each 3 01/15/20 25 Active insulin lispro (U-200) (HumaLOG KwikPen Insulin) 200 unit/mL (3 mL) penIndications:P regnancy with type 2 diabetes mellitus in second trimester (HC) Inject 40-45 units subcutaneous three times daily before meals. Max daily dose 200 units. 90 mL 1 03/05/20 25 Active insulin glargine (U-300) (Toujeo Max U-300 SoloStar) 300 unit/mL (3 mL) inpn penIndications:P regnancy with type 2 diabetes mellitus in second trimester (HC) Inject 80 units subcutaneous once daily in the evening. Titrate as directed in up to max dose 150 units per day 24 mL 1 03/05/20 25 Active calcium carbonate/vitami n D2 (CALCIUM + VITAMIN D ORAL) 12/19/19 25 Active aspirin chewable 81 mg tabletIndication s:Maternal obesity syndrome in second trimester (HC) Chew 1 Tablet (81 mg) by mouth once daily with a meal. 100 Tablet 2 03/15/20 25 Active insulin glargine (U-300) (Toujeo Max U-300 SoloStar) 300 unit/mL (3 mL) inpn penIndications:P regnancy with type 2 diabetes mellitus in first trimester (HC) Inject 50 units subcutaneous once daily in the evening. Titrate as directed in up to max dose 150 units per day 18 mL 1 01/11/20 25 025 Discontin ued(Reord er (E-cancel not sent)) insulin lispro (U-200) (HumaLOG KwikPen Insulin) 200 unit/mL (3 mL) penIndications:T ype 2 diabetes mellitus without complication, without long-term current use of insulin (HC) Inject 33 units before meals three times daily. Increase by 2 units every other day if post meal glucose over 140. Max daily dose 180 units 90 mL 02/19/20 25 025 Discontin ued(Reord er (E-cancel not sent)) Active Problems Problem Noted Date Diagnosed Date [facility] Supervision of high-risk Overview (02/07/2025): SRO MPP - Completed [x] Patient name: Nikhil South : 1995 Age: 29 y.o. Date of SRO: 02/07/2025 Estimated Date of Delivery: 08/29/25 Gest Age: 11w0d G/P: Current BMI: 41 Reason for referral: BMI, T2DM REFERRING PROVIDER/CLINIC LOCATION/FAX #: Randa Leon MD - Emanuel Antunez MD approves scheduling of recommended ultrasounds/testing: Yes Please schedule the following: [x] Guadalupe [] Multiples: [] Consult [x] Ultrasound: - Level 2 (including echo) - 75 minutes [] Lab: [] Genetic Counseling [] Before [] After []15 [] 30 []45 []CVS []Amnio [x] BMI > 40 [] Audio Production Manager - Language [] [place] Insurance: Location [employer] [employer] Any [facility] Clinic [] In-person [] Virtual [] Either N/A Comments: RN: Stacy Ellis RN Consulting Engineer: GC: /Provider: Date:02/07/2025 Urgency: @L2 time []Can be sooner [] Can be split Nikhil South : 1995 REFERRING PROVIDER/CLINIC LOCATION/FAX #: Randa Leon MD - Emanuel Antunez MD approves scheduling of recommended ultrasounds/testing: Yes [facility] ULTRASOUND/TESTING PATIENT Support person name: ULTRASOUND TYPE: L2 REASON FOR VISIT: T2DM, BMI > 40 NEXT VISIT ALERTS: Final MIREILLE by LMP LMP Date: Patient's last menstrual period was 11/22/2024 (exact date). MIREILLE: 08/29/25 Early US: Date: 01/16/25 GA: 7w6d MIREILLE: 08/29/25 PrePregnancy Weight: Height: BMI: PLANS & FUTURE APPOINTMENTS: ULTRASOUND/GROWTH PLAN: - Through: - Growth: Next TESTING PLAN: - Testing: Through DELIVERY PLAN: - Scheduled delivery: - Preferred delivery location: PRIMARY DIAGNOSIS: 29 y.o. Estimated Date of Delivery: 08/29/25 T2DM BMI 41 Asthma PCOS Anxiety 08/2023 37w C/S (GHTN) PREVIOUS ULTRASOUNDS: (PCP) ECHO: SPECIALISTS/CONSULTS: Include: Specialty MD Clinic Name Phone# LV [place] and ADDED TO PATIENT CARE TEAM Yes GENETICS: NIPS: AFP: First screen (NT/seq/integ): if positive add .FIRSTABNORMAL Quad screen (Tetra/Triple screen): if positive add .QUADABNORMAL Amniocentesis/CVS: IVF with PGT: Carrier screening: Declines/Not Done CARE COORDINATION: PERTINENT LABS: Labs reviewed? Normal? Blood type: A Rh Positive Antibody screen: Negative PERTINENT MEDS: Insulin Metformin PROCEDURES: IF FGR <10% or EFW <2000 grams: Add FGRPCOM PLAN OF CARE: Original and updated POC PCOS (polycystic ovarian syndrome) 01/10/2025 Supervision of normal 01/03/2025 Overview (01/03/2025): Father of baby's name: Adilson, Medical History: Past Medical History: . Date Anemia at age 17 Anxiety Asthma (HC) Diabetes mellitus (HC) diagnosed age 20; type 2 Migraine headache Polycystic ovary syndrome OB History: OB History Para Term AB Living 3 1 1 0 1 1 SAB IAB Ectopic Multiple Live Births 1 0 0 0 1 # Outcome Date GA Lbr Anant/2nd Weight Sex Type Anes PTL Lv 3 Current 2 Term 09/01/23 37w0d 2.89 kg (6 lb 5.9 oz) M SPINAL SINDY 1 SAB 07/2021 SPONTANEOUS Labs: -PAP: due 11/2025 -Rubella: IgG confirmed yes -Urine Cx: -GTT/Trep/Hgb @ 28w: -GBS @ 36w: Issues: Early GTT indicated: no Hx of thyroid disorder: no ASA indicated-High Risk for preeclampsia: yes Level 2 FAS indicated (pre-preg BMI>30): yes Genetics: NIPT Yes BMI: Body mass index is 40.51 kg/m . Smoker: No HSV: Denies Ultrasounds: 01/08/25 Vaccinations: -Flu Vaccine: 05/23 -COVID-19 Vaccine: x 2, last in 10/18. Denies COVID-19 infection in -RSV Vaccine @ 32-36w: -Tdap @ 28w: -Rhogam @ 28w: A Rh Positive Alerts: -Obesity -Type II DM -H/o GHTN Management: -Ante Testing: -Delivery: PPBC: (Sterilization desired? MA Paperwork [ ]) Type 2 diabetes mellitus wit hout complication, without long-term current use of insulin 07/22/2024 Mild persistent asthma with exacerbation 024 High-risk human papillomavir us (HPV) DNA detected in cervical specimen, not type 16 or 18 09/29/2023 Overview (12/19/2024): 09/2023 NIL/HPV+, HPV 16/18 negative 11/2024 NIL/HPV negative Plan: Pap/HPV testing due 11/2025 Status post primary low transverse sect ion 09/01/2023 Gastroesophageal reflux disease 01/15/2015 Acne 03/27/2008 Estimated Date of Delivery Comme nts Yes 08/29/2025 Based on last me nstrual period of 11/22/2024 (Exact Date) Resolved Problems Problem Noted Date Diagnosed Date Resolved Date History of primary section 09/01/2023 09/01/2023 Gestational hypertension, third trimester 08/17/2023 01/15/2024 Type 2 diabetes mellitus aff ecting in second trimester, antepartum 05/08/2023 01/15/20 24 Maternal morbid obesity in s econd trimester, antepartum 05/08/2023 01/15/2024 [facility] Supervision of high-risk 03/01/2023 01/15/2024 Overview (06/12/2023): Nikhil Little : 1995 [facility] ULTRASOUND/TESTING PATIENT [facility] CONSULT ON 03/09/23 Support person name: Audio Production Manager: No ULTRASOUND TYPE: Growth REASON FOR VISIT: T2DM, BMI >40 NEXT VISIT ALERTS: Final MIREILLE by Early Ultrasound LMP Date: No LMP recorded (lmp unknown). Patient is . Early US: Date: 12/30/22 GA: 4w6dd MIREILLE: 09/22/23 PrePregnancy Weight: 234lb Height: 5'4 BMI: 39.90 PLANS & FUTURE APPOINTMENTS: ULTRASOUND/GROWTH PLAN: 05/08 per ML: -Serial growth ultrasounds every 6 weeks until delivery - Through: - Growth: Next TESTING PLAN: - Testing: Through DELIVERY PLAN: - Scheduled delivery: - Preferred delivery location: PRIMARY DIAGNOSIS: 27 y.o. Estimated Date of Delivery: 09/22/23 Type 2 DM BMI 44 PCOS Asthma Pelvis fracture with screws in place (2011) PREVIOUS ULTRASOUNDS: 05/08/23 20w4d EFW 337 grams, percentile 29 02/03/23 7 week 1 day gestation with an EDC of 09/21/2023. (PCP) ECHO: 05/08/23 Normal Echocardiogram with some limitations Follow up on limited views at the time of next growth ultrasound REFERRING PHYSICIAN/PHONE/LAST UPDATE: Megan Ayala MD Primary MD approves scheduling of recommended ultrasounds/testing: Yes SPECIALISTS/CONSULTS: Endocrinology, DAMION Dunaway, Elijahmancos, Include: Specialty MD Clinic Name Phone# CG NV and ADDED TO PATIENT CARE TEAM Yes GENETICS: NIPT: low risk CARE COORDINATION: PERTINENT LABS: Labs reviewed? Yes Normal? Yes Blood type: A Rh Positive Antibody screen: Negative Latest Reference Range & Units 02/27/23 08:59 HEMOGLOBIN A1C MONITORING (POCT) <=6.4 % 6.0 TSH 0.27 - 4.20 uIU/mL 0.52 T4,FREE 0.93 - 1.70 ng/dL 1.08 PERTINENT MEDS: Insulin Aspirin Metformin PROCEDURES: IF FGR <10% or EFW <2000 grams: Add FGRPCOM PLAN OF CARE: Original and updated POC 05/08/23 per ML -Return to primary provider for continued care. -Serial growth ultrasounds every 6 weeks until delivery -Twice weekly testing with BPP/NSTs alternating with NSTs starting at 32 weeks' gestation. -The patient was directed to schedule with MPP as discussed at their visit today. -Patient directed to schedule at the front desk assistant on the way out, or to call MPP within 2 business days to schedule follow up. -Baseline preeclampsia labs -Since this is complicated by Diabetes, continue daily low dose ASA -Delivery at 39-40 weeks or sooner if clinically indicated 03/09/23 per SA (Consult) Class B-C Diabetic (No comorbid conditions or end organ disease) Reviewed risks for Preeclampsia, delivery, shoulder dystocia, , and complications. risk of hypoglycemia, NICU admission, increased risk of RDS. Folate/PNV supplementation as recommended primary OB. Oral health exam recommended if not done in the past 6 months. Retinal exam if not done in the past 12 months, or as clinically indicated if retinal disease. Care Coordination is offered as resource to primary provider. Met with RN care advocate today. Screen for depression and psychosocial risks/barriers to care throughout and . Plan for delivery based on clinical assessment, level of glycemic control and comorbidities. Insulin is recommended for glycemic control in followed by Refinery Process Engineer.. Recommend regular Diabetes Team follow up Tight glycemic control with regular review of blood sugar logs or CGMS recommended. Obtain baseline Hgb A1c, AST, CBC, Creatinine, & Protein Creatinine Ratio If HgbA1c < 8.5 Level II ultrasound and echo at 20-22 weeks Serial growth ultrasounds at 6-week intervals beginning at 20 weeks. Because of increased risk of delivery complications which correlate to weight and increased risk of macrosomia, a growth scans for delivery planning at 36-38 weeks is recommended. Twice weekly testing BPP/NST alternating with NST beginning at 32 weeks. Low dose ASA 81 mg once daily from 12 weeks to be continued till 37 weeks. Follow up appointment for Level II ultrasound and cardiac ECHO is scheduled with MPP. Planned subsequent growth scans and testing with primary OB provider. Encounter for supervision of normal first , unspecified trimester 01/27/2023 024 Overview (01/27/2023): Gestational age at time of intake: 6w0d Patient preferred name: Nikhil Nina Hx: Hx anxiety; Type 2 diabetes; PCOS; Anemia; Asthma; Migraines; Patient has a cousin that was born with a hole in her heart; Family hx breast cancer (MGM) Concerns this : None OB Hx: OB History Para Term AB Living 2 0 0 0 1 0 SAB IAB Ectopic Multiple Live Births 1 0 0 0 0 # Outcome Date GA Lbr Anant/2nd Weight Sex Delivery Anes PTL Lv 2 Current 1 SAB 07/2021 SPONTANEOUS Early GTT indicated: not applicable Hx of thyroid disorder: no. ASA indicated-High Risk for preeclampsia: yes Level 2 FAS indicated (pre-preg BMI>30): yes Genetic screening: Patient planning on panorama screening BMI: 41.45 >30 recommended weight gain 11-20# If prepregnancy BMI >30: Send to provider for Level II @ MPP Smoker: no HSV: no Ultrasound: Scheduled for 02/03/23 Flu vaccine: 07/2022 COVID-19 vaccine: Moderna COVID-19 booster: (if applicable) Pertussis Vaccine: Peds: Domestic violence screen: Assessed-no concerns Partners name (if applicable): Adilson ASCUS of cervix with negative high risk HPV 05/31/2017 01/28/2021 Overview (12/07/2020): Repeat in 3 years IUD (intrauterine device) in place - [facility] 7 04/06/2022 Morbid obesity with BMI of 40.0-44.9, adult 08/08/2016 07/22/2024 Overview (12/07/2020): Body mass index (BMI) 40.0-44.9, adult Rule activated problem due to BMI 40-44 posted on 08/08 at 09:46 SURVEILLANCE TECHNICIAN. Insulin dependent type 2 arlene betes mellitus, controlled 06/24/2015 01/15/2024 Overview (06/19/2023): Current Outpatient Medications: Accu-Chek Guide test strips strip, Dispense item covered by pt ins. O24.319 NIDDM - Test 4 times/day. New medication, Disp: 150 Each, Rfl: 6 Accu-Chek Softclix Lancets, Dispense item covered by pt ins. O24.319 NIDDM - Test 4 times/day. New medication, Disp: 100 Each, Rfl: 6 acetaminophen (TYLENOL) 325 mg tablet, Take by mouth., Disp: , Rfl: albuterol HFA (ProAir HFA) 90 mcg/actuation inhaler, Inhale 2 Puffs by mouth every 6 hours if needed for Shortness of Breath 1st choice., Disp: 1 Each, Rfl: 1 aspirin chewable 81 mg chewable tablet, Chew 1 Tablet (81 mg) by mouth once daily., Disp: 90 Tablet, Rfl: 3 blood-glucose meter, Dispense meter, test strips, lancets covered by pt ins. E11.9 NIDDM type II - Test 1 time/day, Disp: 1 Device, Rfl: 0 fluticasone propionate (Flovent Diskus) 50 mcg/actuation inhaler, Inhale 1 Puff by mouth two times daily., Disp: 60 Each, Rfl: 0 insulin glargine, U-300, (Toujeo Max U-300 SoloStar) 300 unit/mL (3 mL) inpn pen, Inject 92 units subcutaneous at bedtime. Max dose 120 units per day., Disp: 12 mL, Rfl: 1 insulin lispro, U-200, (HumaLOG KwikPen Insulin) 200 unit/mL (3 mL) pen, Inject 60 units subcutaneous three times daily. Increase as directed (max dose 200 units per day), Disp: 30 mL, Rfl: 1 Insulin [place], Disposable, (Cydney Pen Needle) 32 gauge x 5/32, As directed. To use with insulin, 4 injections per day, Disp: 100 Each, Rfl: 6 metFORMIN sustained release (GLUMETZA) 500 mg tablet, Take 2 tabs at breakfast & one at dinner, Disp: 180 Tablet, Rfl: 3 PNV Cmb#56-Uelo-Pbzgt Acid 14 mg iron- 400 mcg tab, Take 1 Tablet by mouth once daily., Disp: 90 Tablet, Rfl: 3 urine glucose-ketones test strp, As directed. Test first urine void of the day., Disp: 1 Each, Rfl: 0 Medications have been reviewed by me and are current to the best of my knowledge and ability. Migraine headache 06/18/2014 06/19/2023 Encounters Date Type Department Care Team Description 04/02/[facility] [address] [place] [phone] Randa Leon MD Vaginal Bleeding 03/25/2025 8:00 AM CDT Patient Outreach [address] [place] [id number] Luna Moore RN Diabetes (Diabetes education, virtual visit, no vs taken) 03/20/2025 Travel 03/14/2025 9:00 AM CDT OB [facility]counter [facility] [address] [place] [phone] Randa Leon MD Care (16 weeks/MIREILLE:08/29/2025 /Rh+) 03/14/2025 Travel 03/09/2025 Travel 03/05/2025 11:30 AM CDT Telemedicine [address] [place] [address] Andreina Shearer PA Telehealth (No vitals obtained); Diabetes 02/28/2025 Travel 02/18/2025 8:00 AM CDT Patient Outreach [address] [place] [address] Luna Moore RN Telehealth (Diabetes education, virtual visit, no vs taken) 02/18/2025 Orders Only [address] [place] [address] Andreina Shearer PA <No scans attached> 02/13/2025 Nurse Triage [facility] [address] [place] [phone] Randa Leon MD Questions 02/13/2025 Travel 02/11/2025 Orders Only [facility] [address] [place] [phone] Randa Leon MD <No scans attached> 02/11/[address] [facility] [address] [place] [address] Sonja Ferreira HUC Appointment 02/10/2025 11:40 AM CDT Orders Only [facility] [address] [facility] [address] [place] [address] Lab 02/10/2025 Travel 02/07/2025 9:20 AM CDT OB Encounter [facility] [address] [place] [phone] Randa Leon MD Care (Initial OB/11 weeks/MIREILLE:08/29/2024 /Rh+/Genetics); Nurse/Clinic Staff Only (Pt states that she has had some migraines the last couple of days, as well as dizziness ) 02/07/2025 Transcribe Orders [facility] [address] [facility] [address] [place] [address] Randa Leon MD 02/07/2025 Travel 02/06/2025 Travel 02/02/2025 Travel 01/29/2025 8:00 AM CDT Office Visit [facility] [address] [facility] [facility] [address] [place] [address] Tera Narvaez MD Recheck (Right wrist carpal tunnel ) 01/29/2025 Travel 01/28/2025 11:30 AM CDT Patient Outreach [address] [place] [address] Up, Johnathon Gdm 1x1 Follow Telehealth (Diabetes education, virtual visit, no vs taken) 01/24/2025 Travel 01/23/2025 Travel 01/16/2025 1:45 PM CDT Ancillary Procedure [facility] [address] [place] [address] 01/14/2025 11:00 AM CDT Patient Outreach [address] [place] [address] Up, Johnathon Gdm 1x1 Follow Telehealth (Diabetes education, virtual visit, no vs taken) 01/13/2025 Travel 01/10/2025 10:00 AM CDT [facility] [address] [place] [address] Andreina Shearer PA Telehealth (No vitals obtained); Diabetes 01/09/2025 Travel 01/07/2025 Telephone [facility] [address] [place] [phone] Randa Leon MD Appointment 01/06/2025 2:30 PM CDT Patient Outreach [facility] [address] [place] [address] Diabetes (Follow up) 01/05/2025 Travel 01/03/2025 2:00 PM CDT Phone OB Encounter [facility] [address] [facility] [address] [place] [address] Education (OB intake 6w0d ) 01/03/2025 Travel 01/02/2025 Travel 01/01/2025 Travel from Last 3 Months Immunizations Immunization Administration Dates Next Due COVID-19 vaccine (Moderna 100mcg/0.5mL) PF, MDV 10/01/2020,09/03/2020 DTaP 01/08/1999, 5,1993,09/16,1993 Hepatitis A (Adult) 11/25/2015,01/02/2015 Hepatitis B, Unspecified 1997,03/08/1994,1 08/10/1992 Hib Conjugate, Unspecified 05/25/1996,,1993,07/08 INFLUENZA, IIV3 PF (AGE >= 6 MO) 05/21/2024 Influenza Virus, Unspecified 06/07/2012 Influenza, IIV4 08/03/2022,05/05/2021 Influenza, IIV4 (=>6mos) MDV 07/25/2019 Influenza, Injectable, Mdck, Quadrivalent, W/preservative 04/17/2023 Influenza,CCIIV4 PRESERV FREE 06/20/2020 MMR 01/08/1999,08/30/1994 Meningococcal Vaccine (Menactra) 06/27/2011 Pneumococcal Poly,23-Valent (Pneumovax) 07/22/2015 Polio Virus, Unspecified 12/29/1998,0803/1994,1993,07/08 RSV, Bivalent Vaccine Recons tituted (Abrysvo 120MCG/0.5mL) 08/11/2023 Tdap 06/23/2023,08/24/2021,06/27/2011 Tuberculin (PPD) 12/07/2020 Family History Medical History Relation Name Comments Diabetes Father Heart attack Father Hypertension Father Cancer-colon Maternal Aunt Diabetes Maternal Grandfather Heart attack Maternal Grandfather Cancer-breast Maternal Grandmother Cancer-colon Maternal Grandmother Cancer-pancreatic Maternal Grandmother Skin cancer Maternal Grandmother Diabetes Maternal Uncle Alopecia Mother Diabetes Mother Polycystic ovary syndrome Mother Thyroid Disease Mother Heart attack Paternal Grandfather Lung cancer Paternal Grandfather Alcoholism Paternal Grandmother Good Health Son Other Son Chronic ear inf ections Relation Name Status Comments Father Alive Maternal Aunt Alive Maternal Grandfather Maternal Grandmother Maternal Uncle Alive Mother Alive Paternal Grandfather Paternal Grandmother Son Alive Social History Tobacco Use Types Packs/Day Years Used Date Smoking Tobacco: Never Smokeless Tobacco: Never Tobacco Cessation:Counseling Given: Not Answered Alcohol Use Standard Drinks/Week Comments Not Currently 0 (1 standard drink = 0.6 oz pur e alcohol) None since PHQ-2 Answer Date Recorded PHQ-2 TOTAL SCORE 0 02/07/2025 Social Connections Answer Date Recorded Do you often feel lonely or isolated from those around you? 0 11/24/2024 Financial Resource Strain Answer Date R ecorded Difficulty of Paying Living Expenses 3 11/24/2024 Difficulty of Paying Living Expenses Not on file 11/24/2024 Food Insecurity Answer Date Recorded Do you worry your food will run out before you are able to buy more? 1 11/24/2024 Transportation Needs Answer Date Record ed Does lack of transportation keep you from medica l appointments? 1 11/24/2024 Does lack of transportation keep you from work, meetings or getting things that you need? 1 11/24/2024 Housing Stability Answer Date Recorded What is your housing situation today? 1 11/24/2024 Interpersonal Safety Answer Date Record ed Are you being hit, kicked, p ushed or yelled at (see row info)? No 09/01/2023 Interpersonal Safety Abuse 12 - 18 Not on file 09/01/2023 Interpersonal Safety Ambulatory Vulnerability No t on file 09/01/2023 Utilities Answer Date Recorded Do you have trouble paying f or utilities (for example, heat, electricity, water, phone)? 1 11/24/2024 Estimated Date of Delivery Comme nts Yes 08/29/2025 Based on last me nstrual period of 11/22/2024 (Exact Date) Sex and Gender Information Value Date Recorded Sex Assigned at Female 01/10/2021 10:41 PM CDT Legal Sex Female 4:49 PM CDT Gender Identity Female 01/10/2021 10:41 PM CDT Sexual Orientation Straight 01/10/2021 10 :41 PM CDT Obstetrics History Para Term AB IAB SAB Ectopic Multiple Livin g Live Births 3 1 1 0 1 0 1 0 0 1 1 Date Outcome GA Total Labor Labor/2nd/3rd Weight Sex Type Anes PTL Sindy A1 A5 Name Clin SAB SPONTA NEOUS 2023 Term 37w 0d 0h 01m 0h 01m 2.89 kg (6 lb 5.9 oz) M C-Sect ion Spinal Livin g 8 8 Bb Dayne Valenzuela and Cadence Conley MD Complications:None Delivery Location:Hospital ( [facility] 1999 L&D TRIAGE) Current Summary Episode Dates Number of Fetuses Estimated Date of Delivery 01/03/2025 - Present (04/02/2025) 1 08/29/2025 (set by Eren Reynolds RN on 01/03/2025 based on Last Menstrual Period on 11/22/2024 (Exact Date)) Dating Summary Based On MIREILLE GA Diff Last Menstrual Period on 11/22/2024 (Exact Date) 08/29/2025 Working Ultrasound on 01/16/2025 08/29/2025 Same GA:7w6d Alternate MIREILLE Entry 08/29/2025 Same Overview and Plan :Guadalupe Support person:Wilbur on, Vitals Pregravid Weight Height TWG (As of 04/02/2025) Pregrav id BMI 1.626 m (5' 4) Notes Progress Notes - OB Encounte r - 03/14/2025 - GA:16w0d 03/14/2025 - 16w0d - Randa Davenport MD Routine Obstetrical APPOINTMENT- @ 16weeks S: Nikhil is a 29y.o. @ 16 wega her for KARAN appt today. Doing well. Reports decrease in frequency of headaches Denies VB/LOF/Cramping/CTX. Reports flutters O: BP 120/62 (Cuff Site: Right Arm, Position: Sitting, Cuff Size: Adult Large) Wt 113.4 kg (250 lb) LMP 11/22/2024 (Exact Date) BMI 42.91 kg/m Gen: Well appearing in NAD Abd; Gravid @ 16 wega V-SCAN Visible Aquatic Fetus FCA visualized FHT's; 156 A/P: 29 y.o. @ 16 wega doing well Supervision of high risk in 2nd trimester --PNL WNL to date --DET US due at next visit --RH POS RI Pre-Existing Type II Dm on Insulin --Followed by Endocrinology --Baseline A1c 6.6% Maternal Obesity --Compliant wit Baby ASA 81 mg po daily --Plan BID AT @ 32 weeks along with Serial growth scans H/O --Undecided on TOLAC versus RLTCS for Mode of Delivery RTC in 4 weeks for next KARAN appt Reviewed labor precautions Preeclampsia precautions given Third trimester bleeding precautions given Progress Notes - OB Encounte r - 02/07/2025 - GA:11w0d 02/07/2025 - 11w0d - Randa Davenport MD Ms. Nikhil South is a 29 y.o. at 11w2d who is here today for her first care visit. Patient's last menstrual period was 11/22/2024 (exact date). A first trimester ultrasound was performed. Dating is based on LMP and 1st TM US and Nikhil has perfect dating giving an Estimated Date of Delivery: 29 AUG 2024 She has felt ok so far. Reports some increased headaches frequency with know history of migraines. Recommended Tylenol and we can also consider Fioricet if indicated. Labs: LABS [facility] Resulted Labs: Recent Labs 09/01/23 0545 ABORH A Rh Positive No results for input(s): HGB, PLT in the last 6720 hours. No results for input(s): RPR, TREPONEPALLI, RUBELLAIGG, HBSAG, [id number] in the last 6720 hours. OB History Para Term AB Living 3 1 1 0 1 1 SAB IAB Ectopic Multiple Live Births 1 0 0 0 1 # Outcome Date GA Lbr Anant/2nd Weight Sex Type Anes PTL Lv 3 Current 2 Term 09/01/23 37w0d 2.89 kg (6 lb 5.9 oz) M SPINAL SINDY Name: Kolby Little Apgar1: 8 Apgar5: 8 1 SAB 07/2021 SPONTANEOUS Her past gynecologic history: Patient's last menstrual period was 11/22/2024 (exact date). Last Pap smear: WNL-NOVEMBER 2024-Repeat in 12 months History of abnormal: Yes History of STD: Denies Contraceptive History: OCP's Past Medical History: . Date Anemia at age 17 Anxiety Asthma (HC) Diabetes mellitus (HC) diagnosed age 20; type 2 Migraine headache Polycystic ovary syndrome Past Surgical History: . Laterality Date SECTION 08/2023 CYST REMOVAL From neck. In childhood PELVIC FRACTURE TX WISDOM TEETH EXTRACTION Family History Problem Relation Age of Onset Thyroid Disease Mother Diabetes Mother Polycystic ovary syndrome Mother Alopecia Mother Diabetes Father Hypertension Father Heart attack Father Cancer-colon Maternal Aunt Diabetes Maternal Uncle Cancer-breast Maternal Grandmother 51 Cancer-pancreatic Maternal Grandmother Cancer-colon Maternal Grandmother Skin cancer Maternal Grandmother Diabetes Maternal Grandfather Heart attack Maternal Grandfather Alcoholism Paternal Grandmother Heart attack Paternal Grandfather Lung cancer Paternal Grandfather Good Health Son Other (Other) Son Chronic ear infections Social History Socioeconomic History Marital status: Spouse name: Adilson South Tobacco Use Smoking status: Never Smokeless tobacco: Never Vaping Use Vaping status: Never Used Substance and Sexual Activity Alcohol use: Not Currently Comment: None since Drug use: Never Sexual activity: Yes Partners: Male Comment: Partner Adilson, currently Other Topics Concern Service No Blood Transfusions No Caffeine Concern No Occupational Exposure No Hobby Hazards No Sleep Concern No Stress Concern No Weight Concern No Special Diet Yes Comment: diabetic Back Care No Exercise Yes Seat Belt Yes Social History Narrative No hindu or cultural practices identified that would affect care per patient. Anabel Medina RN 03/09/2023 10:38 AM Nikhil works for [employer]. She is to Adilson. They share son Jani, and are expecting baby #2 in July 2025! Eren Reynolds RN Women's Health Triage ........ 01/03/2025 2:34 PM Allergies Allergen Reactions Penicillins Anaphylaxis Shrimp Throat Swelling/Closing Amoxicillin Hives Converted from Generic Allergy: Amoxicillin Clindamycin Hives Sulfa (Sulfonamide Antibiotics) Hives Current Outpatient Medications Medication Sig Dispense Refill Accu-Chek Guide test strips strip USE TO TEST FOUR TIMES DAILY 400 Each 3 Accu-Chek Softclix Lancets Dispense item covered by pt ins. O24.319 NIDDM - Test 4 times/day. New medication 100 Each 6 acetone (urine) test (Ketostix) strip Check every morning for a week, if negative or trace reduce to checking 2-3 days per week. 1 Each 0 albuterol HFA (ProAir HFA) 90 mcg/actuation inhaler Inhale 2 Puffs by mouth every 6 hours if needed for Shortness of Breath 1st choice. 1 Each 1 blood-glucose meter Dispense meter, test strips, lancets covered by pt ins. E11.9 NIDDM type II - Test 1 time/day 1 Device 0 healthfinch G7 Sensor for continuous blood glucose monitor (CGM) To be used to read blood sugars, follow purification operator helper directions. 9 Each 3 docusate (COLACE) 100 mg capsule Take 1 Capsule (100 mg) by mouth once daily. 90 Capsule 3 fluticasone (50 mcg per actuation) nasal solution (FLONASE) Inhale 2 Sprays in both nostrils once daily. 16 g 3 insulin glargine (U-300) (Toujeo Max U-300 SoloStar) 300 unit/mL (3 mL) inpn pen Inject 50 units subcutaneous once daily in the evening. Titrate as directed in up to max dose 150 units per day 18 mL 1 insulin lispro (U-100) (HumaLOG KwikPen Insulin) 100 unit/mL Inject under the skin 15 units before meals, hold if not eating. Titrate as directed in , up to 150 units per day. 150 mL 1 magnesium 250 mg tab Take 2 Tablets (500 mg) by mouth once daily. medication order composer Takes 2 tablets daily containing a total of 1200mg calcium and 40mcg Vitamin D metFORMIN 500 mg Extended-Release tablet Take 2 Tablets (1,000 mg) by mouth two times daily with meals. 360 Tablet 1 pen needle (Cydney Pen Needle) 32 gauge x 5/32 (disposable insulin pen needle) Inject subcutaneous. For administering insulin at home 4 times per day 200 Each 11 PNV Cmb#57-Tiug-Xhrio Acid 14 mg iron- 400 mcg tab Take 1 Tablet by mouth once daily. 90 Tablet 3 No current facility-administered medications for this visit. Medications have been reviewed by me and are current to the best of my knowledge and ability. REVIEW OF SYSTEMS: Comprehensive review of systems was performed and is negative aside from that which is mentioned in the HPI. Physical Exam BP 130/60 (Cuff Site: Right Arm, Position: Sitting, Cuff Size: Adult Large) Ht 1.626 m (5' 4) Wt 109.3 kg (241 lb) LMP 11/22/2024 (Exact Date) BMI 41.37 kg/m GEN: alert, oriented, no apparent distress LUNGS: non labored breathing HEART: no peripheral edema ABDOMEN: The abdomen is soft without tenderness, guarding, mass, rebound or organomegaly. PELVIC EXAM: External genitalia: normal external genitalia, urethra, Bartholin's and Marianna's glands, anus and perineum are normal. Vagina: normal, moist, rugated, without lesion, tenderness, or masses Cervix: Normal appearing, smooth, without lesion. Uterus: bimanual examination confirms midline, appropriately size mobile uterus without masses Adnexa: normal; no palpable masses or tenderness LYMPHATICS: No lymphadenopathy in the inguinal areas. NEUROLOGIC: No motor or sensory deficits. PSYCH: answers and asks questions appropriately, appropriate affect SKIN: no concerning rashes or lesions DEPRESSION SCREEN PHQ Score and Severity Date of PHQ exam: 02/07/25 PHQ-2 TOTAL SCORE: 0 PHQ-9 TOTAL SCORE: 2 Depression Severity Level: noneIntervention: Not Depressed ASSESSMENT/PLAN ICD-10-CM 1. Supervision of other high risk pregnancies, first trimester () O09.891 GC CHLAMYDIA TRACH PROBE VARICELLA-ZOSTER V AB, IGG CBC W PLT NO DIFF URINE CULTURE TYPE AND SCREEN RUBELLA IMMUNE STATUS TREPONEMA PALLIDUM HBSAG (HBS) ANTI HCV ANTI HIV 1/2 DNA SCREEN SEND OUT HEMOGLOBIN A1C AMB CONSULT TO MATERNAL- MEDICINE ALT (SGPT) AST (SGOT) PROTEIN/CREAT RATIO,URINE CREATININE 2. Pre-existing diabetes mellitus in in first trimester () O24.311 HEMOGLOBIN A1C AMB CONSULT TO MATERNAL- MEDICINE ALT (SGPT) AST (SGOT) PROTEIN/CREAT RATIO,URINE CREATININE 3. Screening, , for malformation by ultrasound () Z36.3 AMB CONSULT TO MATERNAL- MEDICINE 4. Maternal obesity syndrome in first trimester () O99.211 AMB CONSULT TO MATERNAL- MEDICINE 5. H/O: Z98.891 29y.o. @ 11w+2d with Guadalupe IUP Oriented to practice Aneuploidy screening is reviewed, Desires NIPT with Sex Confirmation GDM and GHTN/PreE reviewed baseline PRE-E labs ordered--Baby ASA will be initiated at 11 wega Supervision of other high risk in 1st trimester --PNL ordered today --DET US with ECHO ordered today --Genetics reviewed and orders placed for NIPT Pre-Existing Type II DM -- Followed by Endocrinology -- Most recent A1c-5.7 on 22 JUL 2024 -- A1C ordered today with labs -- Plan BID APT and Seria; Growth AMA --Will be complaint with Baby ASA 81 mg po daily H/O- --Undecided regarding urdolph of delivery likely leaning towards RLTCS Maternal Obesity complicating --Planning on Baby ASA 81 mg po daily --Plan serial growth scans H/O Migraines --Not currently on prescribed medication --Discussed possibly starting Fioricet if indicated --Cleared to utilize Tylenol 1000 mg po q 6h not to exceed 300 mg in a 24 hour period Strict 1st and 2nd trimester bleeding precautions given All questions answered, follow-up in 4 weeks Randa Leon MD .................... 02/09/2025 7:44 AM Progress Notes - Phone OB En counter - 01/03/2025 - GA:6w0d 01/03/2025 - 6w0d - Eren Reynolds RN Patient to see Dr. Leon at 11w0d Daytime Ph#: OK for detailed msg: Yes * Beta HCG Drawn: x 2 * US: 01/08/25 * Medical Hx: asthma, Type II DM, migraines, anxiety, anemia, C/S x 1, SAB x 1, PCOS, GHTN * Rubella IgG confirmed: yes * Early GTT indicated: not applicable * Patients LMP: 11/22/24 Regular * MIREILLE: 08/29/25 * Gestational Age @ Intake Visit: 6w0d * Sequential Screen, Integrated, First trimester screen, Panorama Testing, Cystic Fibrosis Screening pamphlet/info reviewed. Pt instructed on timing of test, scheduling information and advised to verify coverage with insurance carrier prior to testing. Patient will call if testing is desired. Discussed follow-up steps if patient were to have a positive screen. Understanding verbalized. * OB visit summary/clinic info, nausea/vomiting tips, safe OTC medications in and frequently asked questions material reviewed with patient. * Smoking Cessation information given to patient: N/A * Denies History of (+) test/culture MDRO/ Multi drug resistant organisms. This represents: VRE, MRSA & ESBL Domestic Violence Screen: Completed, patient feels safe SYMPTOMS: Missed period My Chart: active and accessible Flu Vaccine: 05/23 COVID-19 Vaccine: x 2, last in 10/18. Denies COVID-19 infection in Eren Reynolds RN Women s Health Triage ........ 01/03/2025 2:34 PM Last Filed Vital Signs Vital Sign Reading Time Taken Comments Blood Pressure 120/62 03/14/2025 8:55 AM CDT Pulse 79 07/22/2024 3:35 PM SURVEILLANCE TECHNICIAN Temperature 36.6 C (97.9 F) 09/06/2023 2:15 PM SURVEILLANCE TECHNICIAN Respiratory Rate 16 09/06/2023 2:15 PM SURVEILLANCE TECHNICIAN Oxygen Saturation 98% 07/22/2024 3:35 PM SURVEILLANCE TECHNICIAN Inhaled Oxygen Concentration - - Weight 113.4 kg (250 lb) 03/14/2025 8:55 AM CDT Height 162.6 cm (5' 4) 02/07/2025 9:32 AM CDT Body Mass Index 42.91 02/07/2025 9:32 AM CDT Plan of Treatment Upcoming Encounters Date Type Department Care Team (Late st Contact Info) Description 04/10/2025 12:[address] [facility] [address] [place] [address] Andreina [place]arer [place] [address] [place] [id number] 04/11/2025 8:20 AM CDT OB Encounter [facility] [address] [place] [phone] Randa Leon MD [address] [place] [id number] 04/14/2025 2:15 PM CDT Appointment [facility] [address] [place] [id number] 04/28/2025 8:00 AM CDT Patient Outreach [facility] [address] [place] [address] Luna Moore RN [address] [place] [id number] 04/29/2025 4:00 PM CDT Office Visit [facility] [address] [facility] [address] [place] [address] Yesi Kumar MD [address] [facility] [address] [place] [address] 05/08/2025 1:[address] [facility] [address] [place] [address] Andreina Shearer PA [address] [place] [address] [place] [address] 05/09/2025 9:00 AM CDT OB Encounter [facility] [address] [place] [address] [place] [phone] Randa Leon MD [address] [place] [address] [place], [place] [address] 06/02/2025 3:30 PM SURVEILLANCE TECHNICIAN Telemedicine [facility] [address] [place] [address] [place] [address] Andreina Shearer PA [address] [place] [address] 06/06/2025 9:00 AM SURVEILLANCE TECHNICIAN OB Encounter [facility] [address] [place] [address] [place] [phone] Randa Leon MD [address] [place] [address] [place] [address] 06/16/2025 9:00 AM SURVEILLANCE TECHNICIAN Telemedicine [facility] [address] [place] [address] Andreina Shearer PA [address] [place] [phone] 06/30/2025 3:30 PM SURVEILLANCE TECHNICIAN Telemedicine [facility] [address] [place] [address] Andreina Shearer PA [address] [place] [address] 07/04/2025 9:00 AM SURVEILLANCE TECHNICIAN OB Encounter [facility] [address] [place] [phone] Randa Leon MD [address] [place] [address] [place] [address] 07/21/2025 9:20 AM SURVEILLANCE TECHNICIAN OB Encounter [facility] [address] [facility] [address] [place] [address] Cadence Conley MD [address] [facility] [address] [facility] [address] [place] [address] 07/28/2025 10:00 AM SURVEILLANCE TECHNICIAN Telemedicine [facility] [address] [place] [address] Andreina Shearer PA [address] [place] [id number] 08/01/2025 9:00 AM SURVEILLANCE TECHNICIAN OB Encounter [facility] [address] [place] [address] [place] [phone] Randa Leon MD [address] [facility] [address] [place] [address] [place] [id number] 08/08/2025 9:00 AM SURVEILLANCE TECHNICIAN OB Encounter [facility] [address] [facility] [address] [place] [address] [place] [phone] Randa Leon MD [address] [facility] [address] [place] [address] [place] [address] 08/11/2025 8:30 AM SURVEILLANCE TECHNICIAN Telemedicine [facility] [address] [place] [address] [place] [address] Andreina Shearer PA [address] [place] [id number] 08/25/2025 8:30 AM SURVEILLANCE TECHNICIAN Telemedicine [facility] [address] [place] [address] Andreina Shearer PA [address] [place] [address] [place] [id number] Health Maintenance Due Date Last Done Comments Pneumococcal series for age 6-49 (2 of 2 - PCV) 07/22/2016 07/22/2015 COVID-19 vaccine series (3 - season) 2025 10/01/2020, 09/03/2020 Influenza Vaccine (#1) 2025 4, 04/17/2023, 08/03/2022, Additional history exists Pap test for age 21-65 11/29/2025 5, 11/29/2024, 10/17/2023, Additional history exists BMI (ht and wt on same day) for age 18+ 02/07/2026 02/07/2025, 01/03/2025, 07/22/2024, Additional history exists Depression screening for age 12+ 02/07/2026 02/07/2025, 07/25/2024, 07/22/2024, Additional history exists Tetanus booster 06/23/2033 06/23/2023, 08/01, 06/27/2011 Hepatitis B series for 19+ Completed 05/04, 03/08/1994, 1993 RSV vaccine for adults or Completed 08/11/2023 HIV for age 15-65 Completed 02/10/2025, 01/13/2023 Hepatitis C screening for ag e 18-79 Completed 02/10/2025, 01/13/2023 Procedures Procedure Name Priority Date/Time Associated Diagnosis Comments PROTEIN/CREAT RATIO,URINE STAT 02/10/2025 12:03 PM CDT Supervision of other high risk pregnancies, first trimester (HC) Pre-existing diabetes mellitus in in first trimester (HC) URINE CULTURE Routine 02/10/2025 12:03 PM CDT Supervision of other high risk pregnancies, first trimester (HC) URINE ALBUMIN TO CREATININE RATIO, RANDOM Routine 02/10/2025 12:03 PM CDT Type 2 diabetes mellitus with hyperglycemia, with long-term current use of insulin (HC) T4,FREE Routine 02/10/2025 11:46 AM CDT COMP METABOLIC PANEL Routine 02/10/2025 11:46 AM CDT Type 2 diabetes mellitus with hyperglycemia, with long-term current use of insulin (HC) LIPID PANEL W REFLEX MEASURED LDL Routine 02/10/2025 11:46 AM CDT Type 2 diabetes mellitus with hyperglycemia, with long-term current use of insulin (HC) TSH WITH REFLEX Routine 02/10/2025 11:46 AM CDT Type 2 diabetes mellitus with hyperglycemia, with long-term current use of insulin (HC) VARICELLA-ZOSTER V AB, IGG Routine 02/10/2025 11:46 AM CDT Supervision of other high risk pregnancies, first trimester (HC) CBC W PLT NO DIFF Routine 02/10/2025 11: 46 AM CDT Supervision of other high risk pregnancies, first trimester (HC) RUBELLA IMMUNE STATUS Routine 02/10/2025 11:46 AM CDT Supervision of other high risk pregnancies, first trimester (HC) HBSAG (HBS) Routine 02/10/2025 11:46 AM CDT Supervision of other high risk pregnancies, first trimester (HC) ANTI HCV Routine 02/10/2025 11:46 AM CDT Supervision of other high risk pregnancies, first trimester (HC) ANTI HIV 1/2 Routine 02/10/2025 11:46 AM CDT Supervision of other high risk pregnancies, first trimester (HC) HEMOGLOBIN A1C Routine 02/10/2025 11:45 AM CDT Supervision of other high risk pregnancies, first trimester (HC) Pre-existing diabetes mellitus in in first trimester (HC) TYPE & SCREEN Routine 02/10/2025 11:44 AM CDT Supervision of other high risk pregnancies, first trimester (HC) TREPONEMA PALLIDUM Routine 02/10/2025 11 :44 AM CDT Supervision of other high risk pregnancies, first trimester (HC) DNA SCREEN SEND OUT Routine 02/10/2025 12:00 AM CDT Supervision of other high risk pregnancies, first trimester (HC) GC CHLAMYDIA TRACH PROBE Routine 02/07/2025 9:20 AM CDT Supervision of other high risk pregnancies, first trimester (HC) US OB 1ST TRI SINGLE TA Routine 01/16/2025 1:52 PM CDT History of miscarriage, currently (HC) HPV HIGH RISK Routine 11/29/2024 2:12 PM CDT Cervical high risk HPV (human papillomavirus) test positive from Last 3 Months or Most Recently Relevant to Health Maintenance Results * PROTEIN/CREAT RATIO,URINE (02/10/2025 12:03 PM CDT) PROTEIN QUANT,RAND URINE <6 1 - 14 mg/dL 02/10/2025 8:57 PM CDT [facility] CREAT,RANDOM URINE 60.5 28.0 - 217.0 mg/dL 02/10/2025 8:57 PM CDT [facility] PROT/CREAT RATIO,UR 02/10/2025 8:57 PM CDT [facility] Comment:Urine Protein below measurement range, unable to calculate. Urine URINE SPECIMEN / Unknown Non-Blood / Unknown 02/10/2025 12:03 PM CDT 02/10/2025 12:03 PM CDT Randa Leon MD URINE Final Result [facility] [address] [place] [address], * (ABNORMAL) URINE CULTURE (02/10/2025 12:03 PM CDT) Pathologist [facility] CULTURE RESULT(A) 02/12/2025 1:32 PM CDT [facility] CULTURE 50,000-100,000 CFU/mL Enterococcus faecalis 02/12/2025 1:32 PM CDT [facility] Comment: Levofloxacin susceptibilities for Enterococcus available upon request for urine isolates ONLY. Levofloxacin is not routinely recommended for Enterococcus and can ONLY be used for infections isolated in the urinary tract. In the setting of polymicrobial urine cultures, Enterococcus often represents colonization and may not necessitate treatment. CULTURE <10,000 CFU/mL Multiple organisms probable contaminants 02/12/2025 1:32 PM CDT [facility] Urine URINE SPECIMEN / Unknown Non-Blood / Unknown 02/10/2025 12:03 PM CDT 02/10/2025 12:03 PM CDT Narrative Organism Antibiotic Method Susceptibility Enterococcus faecalis AMPICILLIN <=2: S Enterococcus faecalis NITROFURANTOIN <=16: S Randa Leon MD MICROBIOLOGY Final Result Performing Organization Address [facility]/ZIP Co de Phone Number [facility] [address] [place] [address], * URINE ALBUMIN TO CREATININE RATIO, RANDOM (02/10/2025 12:03 PM CDT) ALB RAND URINE <12.0 mg/L 02/10/2025 9:20 PM CDT [facility] CREATININE,URINE 0.61 g/L 02/11/20 9:20 PM CDT [facility] ALBUMIN TO CREATININE RATIO,RAND UR 02/10/2025 9:20 PM CDT [facility] Comment:Urine Albumin below measurement range, unable to calculate. Urine URINE SPECIMEN / Unknown Non-Blood / Unknown 02/10/2025 12:03 PM CDT 02/10/2025 12:03 PM CDT Narrative [facility] - 02/10/2025 9:20 PM CDT If Albumin to Creatinine Ratio is elevated, consider the following: Elevations seen with incipient nephropathy associated with diabetes mellitus or hypertension. Stress, exercise,hematuria, and urinary tract infection may also produce elevated results. If clinically indicated, confirm with 24 Hour Albumin to Creatinine Ratio. Andreina VIRGEN URINE Final Result Performing Organization Address [facility]/ZIP Co de Phone Number [facility] [address] [place] [address], * VARICELLA-ZOSTER V AB, IGG (02/10/2025 11:46 AM CDT) VARICELLA ZOSTER VIRUS ANTIBODY (IGG) 5.93 S/CO Performance Indicator [facility] Comment: Signal to Cut-off S/CO Interpretation --------- <1.00 Negative - Antibody not detected > or = 1.00 Positive - Antibody detected A positive result indicates that the patient has antibody to VZV but does not differentiate between an active or past infection. The clinical diagnosis must be interpreted in conjunction with the clinical signs and symptoms of the patient. This assay reliably measures immunity due to previous infection but may not be sensitive enough to detect antibodies induced by vaccination. Thus, a negative result in a vaccinated individual does not necessarily indicate susceptibility to VZV infection. A more sensitive test for vaccination-induced immunity is Varicella Zoster Virus Antibody Immunity Screen, ACIF. Blood BLOOD SPECIMEN / Unknown 02/10/2025 11:46 AM CDT 02/10/2025 11:47 AM CDT Randa Leon MD LABORATORY Final Result Performing Organization Address City/[facility]/ZIP Co de Phone Number [email or web address] [address] [address], [facility] [address] [place] [address] * (ABNORMAL) TSH WITH REFLEX (02/10/2025 11:46 AM CDT) Pathologist [facility] TSH W/REFLEX TO FT4 0.18(L) mIU/L [facility] Comment: Reference Range > or = 20 Years 0.40-4.50 Ranges First trimester 0.26-2.66 Second trimester 0.55-2.73 Third trimester 0.43-2.91 Blood BLOOD SPECIMEN / Unknown 02/10/2025 11:46 AM CDT 02/10/2025 11:47 AM CDT Andreina VIRGEN CHEMISTRY Final Result Performing Organization Address City/[facility]/ZIP Co de Phone Number [email or web address] [facility] [address] [facility] [place] [address], [facility] [address] [place] [address] * (ABNORMAL) LIPID PANEL W REFLEX MEASURED LDL (02/10/2025 11:46 AM CDT) CHOLESTEROL, TOTAL 148 <200 mg/dL [facility] HDL CHOLESTEROL 48(L) > OR = 50 mg/dL [facility] TRIGLYCERIDES 169(H) <150 mg/dL [facility] LDL-CHOLESTEROL 73 mg/dL (calc) [facility] Comment: Reference range: <100 Desirable range <100 mg/dL for primary prevention; <70 mg/dL for patients with CHD or diabetic patients with > or = 2 CHD risk factors. LDL-C is now calculated using the Wander calculation, which is a validated novel method providing better accuracy than the Friedewald equation in the estimation of LDL-C. Scotty FAJARDO et al. JAN. 2013;310(19): 0189-4086 (http://education.Unifyo/faq/TID009) CHOL/HDLC RATIO 3.1 <5.0 (calc) [facility] NON HDL CHOLESTEROL 100 <130 mg/dL (calc) [facility] Comment: For patients with diabetes plus 1 major ASCVD risk factor, treating to a non-HDL-C goal of <100 mg/dL (LDL-C of <70 mg/dL) is considered a therapeutic option. Blood BLOOD SPECIMEN / Unknown 02/10/2025 11:46 AM CDT 02/10/2025 11:47 AM CDT Andreina VIRGEN CHEMISTRY Final Result [email or web address] [facility] [address] [place] [address], [employer] [address] [place] [address] * RUBELLA IMMUNE STATUS (02/10/2025 11:46 AM CDT) RUBELLA AB (IGG), IMMUNE STATUS 2.08 Index [facility] Comment: Index Interpretation ----- <0.90 Not consistent with immunity 0.90-0.99 Equivocal > or = 1.00 Consistent with immunity The presence of rubella IgG antibody suggests immunization or past or current infection with rubella virus. Blood BLOOD SPECIMEN / Unknown 02/10/2025 11:46 AM CDT 02/10/2025 11:47 AM CDT Randa Leon MD SEND OUTS Final Result Performing Organization Address [facility] Co de Phone Number [email or web address] [address] [address], [employer] [facility] [address] [place] [address] * HBSAG (HBS) (02/10/2025 11:46 AM CDT) HEPATITIS B SURFACE ANTIGEN NON-REACTI VE NON-REACTI VE [employer] Comment: For additional information, please refer to http://education.DesignArt Networks/faq/PVT995 (This link is being provided for informational/ educational purposes only.) Blood BLOOD SPECIMEN / Unknown 02/10/2025 11:46 AM CDT 02/10/2025 11:47 AM CDT Randa Leon MD SEND OUTS Final Result Performing Organization Address [facility]/ZIP Co de Phone Number [email or web address] [facility] [address] [place] [address], [facility] [address] [place] [address] * ANTI HCV (02/10/2025 11:46 AM CDT) HEPATITIS C ANTIBODY NON-REACTI VE NON-REACT BERNABE [facility] Comment: HCV antibody was non-reactive. There is no laboratory evidence of HCV infection. In most cases, no further action is required. However, if recent HCV exposure is suspected, a test for HCV RNA (test code 22471) is suggested. For additional information please refer to http://education.DesignArt Networks/faq/AIV87i5 (This link is being provided for informational/ educational purposes only.) Blood BLOOD SPECIMEN / Unknown 02/10/2025 11:46 AM CDT 02/10/2025 11:47 AM CDT Randa Leon MD SEND OUTS Final Result [email or web address] [facility] [address] [place] [address], [employer] [facility] [address] [place] [address] * CBC W PLT NO DIFF (02/10/2025 11:46 AM CDT) WHITE BLOOD CELL COUNT 8.8 3.8 - 10.8 Thousand/u L [facility] ( RED BLOOD CELL COUNT 4.50 3.80 - 5.10 Million/uL [facility] ( HEMOGLOBIN 12.5 11.7 - 15.5 g/dL [facility] ( HEMATOCRIT 38.2 35.0 - 45.0 % [facility] ( MCV 84.9 80.0 - 100.0 fL [facility] ( MCH 27.8 27.0 - 33.0 pg [facility] ( MCHC 32.7 32.0 - 36.0 g/dL [facility] ( Comment: For adults, a slight decrease in the calculated MCHC value (in the range of 30 to 32 g/dL) is most likely not clinically significant; however, it should be interpreted with caution in correlation with other red cell parameters and the patient's clinical condition. RDW 13.6 11.0 - 15.0 % [facility] ( PLATELET COUNT 269 140 - 400 Thousand/u L [facility] ( MPV 9.1 7.5 - 12.5 fL [facility] ( Blood BLOOD SPECIMEN / Unknown 02/10/2025 11:46 AM CDT 02/10/2025 11:47 AM CDT Randa Leon MD HEMATOLOGY Final Result Performing Organization Address City/[facility]/ZIP Co de Phone Number [facility] [address] [place] [address], [place] [facility] ( [address] [place] [address] * ANTI HIV 1/2 (02/10/2025 11:46 AM CDT) HIV FINAL INTERPRETATOIN [facility] Comment: HIV Negative HIV-1 antigen and HIV-1/HIV-2 antibodies were not detected. There is no laboratory evidence of HIV infection. HIV AG/AB, 4TH GEN NON-REACT BERNABE NON-REACT BERNABE [facility] Blood BLOOD SPECIMEN / Unknown 02/10/2025 11:46 AM CDT 02/10/2025 11:47 AM CDT Randa Leon MD SEND OUTS Final Result Performing Organization Address City/[facility]/ZIP Co de Phone Number [facility] [address] [place] [address], [place] [phone] [facility] [address] [place] [address] * T4,FREE (02/10/2025 11:46 AM CDT) T4, FREE 1.1 0.8 - 1.8 ng/dL [facility] 02/10/2025 11:4 6 AM CDT 02/10/2025 11:47 AM CDT us Randa Leon MD CHEMISTRY Final Result [facility] [address] [place] [address], [place] [phone] [facility] [address] [place] [address] * (ABNORMAL) COMP METABOLIC PANEL (02/10/2025 11:46 AM CDT) GLUCOSE 141(H) 65 - 99 mg/dL [facility] Comment: Fasting reference interval For someone without known diabetes, a glucose value >125 mg/dL indicates that they may have diabetes and this should be confirmed with a follow-up test. UREA NITROGEN (BUN) 6(L) 7 - 25 mg/dL [facility] CREATININE 0.39(L) 0.50 - 0.97 mg/dL [facility] EGFR 136 > OR = 60 mL/min/1.7 3m2 [facility] BUN/CREATININE RATIO 15 6 - 22 (calc) [facility] SODIUM 138 135 - 146 mmol/L [facility] POTASSIUM 4.1 3.5 - 5.3 mmol/L [facility] CHLORIDE 103 98 - 110 mmol/L [facility] CARBON DIOXIDE 26 20 - 32 mmol/L [facility] CALCIUM 8.8 8.6 - 10.2 mg/dL [facility] PROTEIN, TOTAL 6.3 6.1 - 8.1 g/dL [facility] ALBUMIN 3.5(L) 3.6 - 5.1 g/dL [facility] GLOBULIN 2.8 1.9 - 3.7 g/dL (calc) [facility] ALBUMIN/GLOBULIN RATIO 1.3 1.0 - 2.5 (calc) [facility] BILIRUBIN, TOTAL 0.3 0.2 - 1.2 mg/dL [facility] ALKALINE PHOSPHATASE 46 31 - 125 U/L [facility] AST 11 10 - 30 U/L [facility] ALT 9 6 - 29 U/L [facility] Blood BLOOD SPECIMEN / Unknown 02/10/2025 11:46 AM CDT 02/10/2025 11:47 AM CDT Andreina VIRGEN CHEMISTRY Final Result [facility] [address] [place] [address], [facility] [address] [place] [address] * (ABNORMAL) HEMOGLOBIN A1C (02/10/2025 11:45 AM CDT) HEMOGLOBIN A1C 6.6(H) <5.7 % [facility] Comment: For someone without known diabetes, a hemoglobin A1c value of 6.5% or greater indicates that they may have diabetes and this should be confirmed with a follow-up test. For someone with known diabetes, a value <7% indicates that their diabetes is well controlled and a value greater than or equal to 7% indicates suboptimal control. A1c targets should be individualized based on duration of diabetes, age, comorbid conditions, and other considerations. Currently, no consensus exists regarding use of hemoglobin A1c for diagnosis of diabetes for children. Blood BLOOD SPECIMEN / Unknown 02/10/2025 11:45 AM CDT 02/10/2025 11:46 AM CDT Randa Leon MD CHEMISTRY Final Result [facility] [address] [place] [address], [place] [phone] [employer] [address] [place] [address] * TREPONEMA PALLIDUM (02/10/2025 11:44 AM CDT) TREPONEMA PALLIDUM Non-Reacti ve Non-Reacti ve 02/10/2025 6:31 PM CDT [facility] Blood BLOOD SPECIMEN / Unknown [facility] / Unknown 02/10/2025 11:44 AM CDT 02/10/2025 11:44 AM CDT Randa Leon MD SEND OUTS Final Result [facility] [address] [place] [address], * TYPE AND SCREEN (02/10/2025 11:44 AM CDT) Pathologist [facility] ABORH A Rh Positive 02/10/2025 7:09 PM CDT [facility] BLOOD BANK ANTIBODY SCREEN Negative Negative 02/10/2025 7:09 PM CDT [facility] BLOOD BANK SPECIMEN EXPIRATION DATE/TIME 02/13/25 23:59 02/10/2025 7:09 PM CDT [facility] Blood BLOOD SPECIMEN / Unknown [facility] / Unknown 02/10/2025 11:44 AM CDT 02/10/2025 11:44 AM CDT Randa Leon MD BLOOD BANK Final Result [facility] [address] [place] [address], [place] [phone] * DNA SCREEN SEND OUT (02/10/2025 12:00 AM CDT) Other BLOOD SPECIMEN / Unknown Randa Leon MD SEND OUTS Final Result * GC CHLAMYDIA TRACH PROBE (02/07/2025 9:20 AM CDT) CHLAMYDIA PROBE Negative 12:44 PM CDT [facility] N GONORRHOEAE PROBE Negative 02/08/2025 12:44 PM CDT [facility] Other VAGINAL SWAB / Unknown Non-Blood / Unknown 02/07/2025 9:20 AM CDT 02/07/2025 1:19 PM CDT Randa Leon MD MICROBIOLOGY Final Result [facility] [address] [place] [address], [place] * US OB 1ST TRI SINGLE TA (01/16/2025 1:52 PM CDT) Anatomical Region Laterality Modality , 1ST TRIMESTER Ultrasound Impressions 01/16/2025 1:57 PM CDT 1. Guadalupe, viable, intrauterine . 2. Ultrasound EDC is 08/29/2025 with a gestational age of 7 weeks 6 days. 3. No adnexal masses are seen. Jing Lamar DO 01/16/2025 1:56 PM [facility] [address] [facility] [address] Narrative 01/16/2025 1:57 PM CDT Table formatting from the original result was not included. For Patients: Results are automatically released to your [employer] ([employer]) account once available, in compliance with federal regulations. This means that you may see your results before your provider has had a chance to review them. Please allow 2-3 business days for your provider to comment on the results. Early Ultrasound Date of exam: 01/16/2025 Indication for exam: 1. History of miscarriage, currently (HC) Requesting Provider: Randa Leon MD TECHNIQUE: Transabdominal scan was performed. Transvaginal scan was not performed. FINDINGS: The uterus is normal size. The myometrium is homogeneous. There are no myomas noted. The right ovary is normal in appearance. The left ovary is normal in appearance. Free fluid in the cul de sac: none There is a single, intrauterine . The crown-rump length is 1.4 cm. These measurements correspond to a 7 week 6 day gestation with an EDC of 08/29/2025. The yolk sac is identified, appears normal, and measures 2.2 mm. heart activity is present with a rate of 156 beats per minute. Randa Leon MD [place] Final Result * HPV HIGH RISK (11/29/2024 2:12 PM CDT) TYPE 16 Negative Negative 12/04/2024 12:23 PM CDT [facility] TYPE 18 Negative Negative 12/04/2024 12:23 PM CDT [facility] OTHER HIGH RISK TYPES Negative Negative 12/04/2024 12:23 PM CDT [facility] Other (Cervical/Vagina l) Non-Blood / Unknown 11/29/2024 2:12 PM CDT 12/02/2024 12:05 PM CDT Narrative [facility] - 12/04/2024 12:23 PM CDT HPV types 16, 18, 31, 33, 35, 39, 45, 51, 52, 56, 58, 59, 66 and 68 DNA were undetectable or below the pre-set threshold. Methodology: Dustin Wally 4800 HPV Test Randa Leon MD MICROBIOLOGY Final Result [facility] [address] [address], from Last 3 Months or Most Recently Relevant to Health Maintenance Insurance [employer] Advance Directives * Full Code (Latest Code Status on File) Date Activated Date Inactivated Comments 09/01/2023 5:27 AM 09/04/2023 4:24 PM Question Answer Comments Code Status Discussion: Reviewed Preferences Care Teams Siebel Consultant Relationship Specialty [place] [address] [place] [address] PCP - General Physician Cash On Delivery Clerk 05/09/23 Megan Ayala MD Obstetrics and Gynecology 01/27/[address] [place] [address] [place] [address] Learning Manager Hat Sprayer 01/06/25 5 Luna Moore RN [address] [place] [address] Learning Manager Registered Nurse 01/14/25 09/21/25 Randa Leon MD [address] [place] [address] Referring Provider Obstetrics and Gynecology 02/07/25
--- NOTE | 2025-04-02 17:57 | CRLHL7_ITS ---
For Patients: As a result of the Century Cures Act, medical imaging exams and procedure reports are released immediately into your electronic medical record. You may view this report before your referring provider. If you have questions, please contact your health care provider. INDICATION: Vaginal bleeding in . TECHNIQUE: Ultrasound OB pelvis transabdominal. Real-time cuba-scale imaging of the fetus was performed as well as color Doppler and spectral Doppler analysis of the umbilical artery. COMPARISON: None. FINDINGS: Intrauterine gestation: Single. heart rate: 180 bpm. Presentation: Cephalic. Placenta: Anterior without previa. Cervix: Closed measuring cm. Amniotic fluid: Normal with a deepest pocket of 4 cm. Other: Subchorionic hemorrhage suspected near the lower uterine segment measuring 3 x 2 x 2 cm. IMPRESSION.: Viable intrauterine . Suspected subchorionic hemorrhage measuring 3 x 2 x 2 cm. Nonspecific tachycardia. No other abnormality evident. Dictated by Valdemar Torres MD @ 04/02/2025 8:26:57 PM (Electronically Signed)
[2025-04-02 18:16] VITALS: BP 134/76
[2025-04-02 18:28] LABS: Hematocrit* 37.6 % (33.0-51.0); Hemoglobin* 12.0 gm/dL (12.0-16.0); Immature Granulocytes Pct Auto 0.2 %; Mean Corpuscular HGB Conc 32 gm/dL (32-36); Mean Corpuscular Hemoglobin 28 pg (26-34); Mean Corpuscular Volume 88 fL (80-100); RDW Coefficient of Variation % 13.6 % (11.5-15.5); Red Blood Count* 4.28 m/uL (4.00-5.20); White Blood Count* 11.36 K/uL (4.50-11.00)
[2025-04-02 18:31] LABS: Immature Granulocytes Abs Auto 0.00 K/uL (0.00-0.30); Lymphocytes Absolute Auto 3.70 K/uL (0.90-2.90); Slide Review Reflex No
--- NOTE | 2025-04-02 18:40 | ED_ITS ---
HPI - General Adult General Chief complaint: Vaginal Bleeding <Kavita Leos MD - Last Filed: 04/02/25 20:04> Stated complaint: 18.5 weeks and bleeding <Kavita Leos MD - Last Filed: 04/02/25 20:04> Time Seen by Provider: 04/02/25 17:55 <Kavita Leos MD - Last Filed: 04/02/25 20:04> Source: patient <Kavita Leos MD - Last Filed: 04/02/25 20:04> Mode of arrival: ambulatory <Kavita Leos MD - Last Filed: 04/02/25 20:04> Limitations: no limitations <Kavita Leos MD - Last Filed: 04/02/25 20:04> History of Present Illness HPI narrative: 29-year-old female, G2 P 118 weeks comes in today with vaginal bleeding. He states that about an hour ago she had an episode where she blood through her pants. She has been having cramping on and off today. No other systemic symptoms. She does have a history of gestational hypertension in her 1st and she is a type 2 diabetic. In the last hour she has not soaked through a pad. <Kavita Leos MD - Last Filed: 04/02/25 20:04> Related Data Home medications: Home Medications ?Medication ?Instructions ?Recorded ?Confirmed docusate sodium 100 mg capsule 100 mg PO QDAY 01/31/24 02/05/24 (Colace) magnesium oxide 500 mg PO QDAY 01/31/24 07/03/23 norgestimate-ethinyl estradiol 1 tab PO QDAY 02/02/24 02/05/24 0.18mg/0.215mg/0.25mg-0.035mg(28)tablet (Tri-Sprintec (28)) calcium carb-ergocalciferol (vit 2 tab PO 02/05/24 D2) 600 mg calcium-200 unit tablet aspirin 81 mg tablet,delayed 81 mg PO DAILY 04/02/25 0 04/02/25 release (Adult Aspirin Regimen) insulin glargine U-300 conc 300 unit subcut 04/02/25 unit/mL (3 mL) subcutaneous pen (Toujeo Max U-300 SoloStar) insulin lispro 100 unit/mL subcut 04/02/25 subcutaneous pen insulin lispro 200 unit/mL (3 mL) subcut 04/02/25 subcutaneous pen (Humalog KwikPen U-200 Insulin) metformin 500 mg tablet,extended mg PO 04/02/25 release 24 hr <Kavita Leos MD - Last Filed: 04/02/25 20:04> Allergies/adverse reactions: Allergies Allergy/AdvReac Type Severity Reaction Status Date / Time shrimp Allergy Severe Anaphylaxis Verified 02/05/24 08:21 amoxicillin Allergy Mild hives Verified 02/05/24 08:21 clindamycin Allergy Mild Hives Verified 02/05/24 08:21 Penicillins Allergy Unknown Verified 04/02/25 17:59 Sulfa (Sulfonamide Allergy Unknown Verified 04/02/25 17:59 Antibiotics) <Kavita Leos MD - Last Filed: 04/02/25 20:04> Review of Systems Status of ROS: Reports: 10 or more systems reviewed and unremarkable except as noted in History and below <Kavita Leos MD - Last Filed: 04/02/25 20:04> [facility] Surgical History: Surgical History History of delivery ?Z98.891 - History of uterine scar from previous surgery (ICD-10) H/O pelvic surgery ?Z98.890 - Other specified postprocedural states (ICD-10) <Kavita Leos MD - Last Filed: 04/02/25 20:04> Social History: Social History Narrative: Patient denies smoking. 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 Smoking Status: Never smoker Do you use any of these nicotine containing products: None How often do you have a drink containing alcohol: never AUDIT-C Alcohol total score: 0 Non-prescribed substance use: denies use Caffeine: Yes Are you using contraception or practicing any form of control: Yes <Kavita Leos MD - Last Filed: 04/02/25 20:04> Exam Narrative: Exam Narrative: Obese, well-developed patient in no acute distress. Alert and oriented. Answers questions appropriately. Mood and affect are appropriate. Thoughts are goal oriented and rational. No tangential or magical thinking noted. Patient speaks in full sentences without needing to catch her breath. HEENT: Normocephalic atraumatic. Extraocular muscles are intact. Conjunctivae are moist without any icterus noted. Moist mucous membranes. Cardiovascular: Heart is regular rate and rhythm S1 and S2 are present without any murmurs. Lungs: Clear to auscultation bilaterally no wheezes rhonchi or rales are appreciated. Patient takes deep breaths without any discomfort. Abdomen: Soft and nontender nondistended with normal bowel sounds. Extremities: Bilateral lower extremities are without edema. Skin: Visible skin is well perfused without any rashes. <Kavita Leos MD - Last Filed: 04/02/25 20:04> Const: Vital Signs, click to edit/add: Vital Signs - 24 hr 04/02/25 17:54 04/02/25 18:16 Temperature 97.4 F L Pulse Rate [Pulse Oximeter] 89 Respiratory Rate 20 Blood Pressure [Ri ght Upper Arm] 140/82 H 134/76 Pulse Oximetry 98 Oxygen Delivery Me thod Room Air <Kavita Leos MD - Last Filed: 04/02/25 20:04> Vital Signs, click to edit/add: Vital Signs - 24 hr 04/02/25 17:54 04/02/25 18:16 Temperature 97.4 F L Pulse Rate [Pulse Oximeter] 89 Respiratory Rate 20 Blood Pressure [Ri ght Upper Arm] 140/82 H 134/76 Pulse Oximetry 98 Oxygen Delivery Me thod Room Air <Rohan Chandler DO - Last Filed: 04/02/25 20:33> Course Course ED Course: Lab work unremarkable. Will proceed with an ultrasound. Care transferred to oncoming MD. <Kavita Leos MD - Last Filed: 04/02/25 20:04> Vital Signs Vital signs: Initial Vital Signs Temperature 97.4 F L 04/02/25 17:54 Temperature Source Temporal Artery Scan 04/02/25 17:54 Pulse Rate 89 04/02/25 17:54 Respiratory Rate 20 04/02/25 17:54 Blood Pressure 140/82 H 04/02/25 17:54 Blood Pressure Mean 101 04/02/25 17:54 Blood Pressure Position Sitting 04/02/25 17:54 Pulse Oximetry 98 04/02/25 17:54 Oxygen Delivery Method Room Air 04/02/25 17:54 Vital Signs Temperature 97.4 F L 04/02/25 17:54 Pulse Rate 89 04/02/25 17:54 Respiratory Rate 20 04/02/25 17:54 Blood Pressure 140/82 H 04/02/25 17:54 Pulse Oximetry 98 04/02/25 17:54 Oxygen Delivery Method Room Air 04/02/25 17:54 Temperature 97.4 F L 04/02/25 17:54 Pulse Rate 89 04/02/25 17:54 Respiratory Rate 20 04/02/25 17:54 Blood Pressure 134/76 04/02/25 18:16 Pulse Oximetry 98 04/02/25 17:54 Oxygen Delivery Method Room Air 04/02/25 17:54 <Kavita Leos MD - Last Filed: 04/02/25 20:04> Initial Vital Signs Temperature 97.4 F L 04/02/25 17:54 Temperature Source Temporal Artery Scan 04/02/25 17:54 Pulse Rate 89 04/02/25 17:54 Respiratory Rate 20 04/02/25 17:54 Blood Pressure 140/82 H 04/02/25 17:54 Blood Pressure Mean 101 04/02/25 17:54 Blood Pressure Position Sitting 04/02/25 17:54 Pulse Oximetry 98 04/02/25 17:54 Oxygen Delivery Method Room Air 04/02/25 17:54 Vital Signs Temperature 97.4 F L 04/02/25 17:54 Pulse Rate 89 04/02/25 17:54 Respiratory Rate 20 04/02/25 17:54 Blood Pressure 140/82 H 04/02/25 17:54 Pulse Oximetry 98 04/02/25 17:54 Oxygen Delivery Method Room Air 04/02/25 17:54 Temperature 97.4 F L 04/02/25 17:54 Pulse Rate 89 04/02/25 17:54 Respiratory Rate 20 04/02/25 17:54 Blood Pressure 134/76 04/02/25 18:16 Pulse Oximetry 98 04/02/25 17:54 Oxygen Delivery Method Room Air 04/02/25 17:54 <Rohan Chandler DO - Last Filed: 04/02/25 20:33> Medical Decision Making MDM Narrative Medical decision making narrative: 29-year-old female at 18 weeks gestation with vaginal bleeding. <Kavita Leos MD - Last Filed: 04/02/25 20:04> Patient is a 1-year-old female 18 weeks presenting to emergency department for vaginal bleeding. She was signed out to me pending ultrasound final read. The ultrasound read shows a viable intrauterine with a suspected subchorionic hemorrhage. There is some nonspecific fever tachycardia. Her lab work is looking well and I spoke to her about the results. He is safe for discharge and will follow-up with her OB. <Rohan Chandler DO - Last Filed: 04/02/25 20:33> Lab Data Labs: Lab Results 04/02/25 Range/Units 18:25 WBC 11.36 H (4.50-11.00) K/uL RBC 4.28 (4.00-5.20) m/uL Hgb 12.0 (12.0-16.0) gm/dL Hct 37.6 (33.0-51.0) % MCV 88 (80-100) fL MCH 28 (26-34) pg MCHC 32 (32-36) gm/dL RDW Coeff of Juwan 13.6 (11.5-15.5) % Plt Count 268 (140-440) K/uL Neut % (Auto) 60.6 (42.0-72.0) % Lymph % (Auto) 32.3 (20-44) % Dixie % (Auto) 5.8 (0.0-11.0) % Eos % (Auto) 1.0 (0.0-7.0) % Baso % (Auto) 0.1 (0.0-3.0) % Neut # (Auto) 6.90 (1.7-7.0) K/uL Lymph # (Auto) 3.70 H (0.90-2.90) K/uL Dixie # (Auto) 0.70 (0.00-0.90) K/UL Eos # (Auto) 0.10 (0.00-0.50) K/uL Baso # (Auto) 0.00 (0.00-0.30) K/uL Abs Immat Gran (auto) 0.00 (0.00-0.30) K/uL Imm/Tot Granulo (auto) 0.2 % HCG, Quant 60915.00 mIU/mL Blood Type A Positive <Kavita Leos MD - Last Filed: 04/02/25 20:04> Lab Results 04/02/25 Range/Units 18:25 WBC 11.36 H (4.50-11.00) K/uL RBC 4.28 (4.00-5.20) m/uL Hgb 12.0 (12.0-16.0) gm/dL Hct 37.6 (33.0-51.0) % MCV 88 (80-100) fL MCH 28 (26-34) pg MCHC 32 (32-36) gm/dL RDW Coeff of Juwan 13.6 (11.5-15.5) % Plt Count 268 (140-440) K/uL Neut % (Auto) 60.6 (42.0-72.0) % Lymph % (Auto) 32.3 (20-44) % Dixie % (Auto) 5.8 (0.0-11.0) % Eos % (Auto) 1.0 (0.0-7.0) % Baso % (Auto) 0.1 (0.0-3.0) % Neut # (Auto) 6.90 (1.7-7.0) K/uL Lymph # (Auto) 3.70 H (0.90-2.90) K/uL Dixie # (Auto) 0.70 (0.00-0.90) K/UL Eos # (Auto) 0.10 (0.00-0.50) K/uL Baso # (Auto) 0.00 (0.00-0.30) K/uL Abs Immat Gran (auto) 0.00 (0.00-0.30) K/uL Imm/Tot Granulo (auto) 0.2 % HCG, Quant 26049.00 mIU/mL Blood Type A Positive <Rohan Chandler DO - Last Filed: 04/02/25 20:33> Imaging Data Transvaginal ultrasound: Attestation: I have reviewed the pertinent imaging results. <Rohan Chandler DO - Last Filed: 04/02/25 20:33> Radiologist's impression: Viable intrauterine . Suspected subchorionic hemorrhage measuring 3 x 2 x 2 cm. Nonspecific tachycardia. No other abnormality evident. Dictated by Valdemar Torres MD @ 04/02/2025 8:26:57 PM <Rohan Chandler DO - Last Filed: 04/02/25 20:33> Discharge Plan Discharge Clinical Impression: Vaginal bleeding, <Kavita Leos MD - Last Filed: 04/02/25 20:04> Patient Disposition: Home, Self-Care <Kavita Leos MD - Last Filed: 04/02/25 20:04> Condition: Stable <Kavita Leos MD - Last Filed: 04/02/25 20:04> Instructions: Subchorionic Hemorrhage (ED) <Kavita Leos MD - Last Filed: 04/02/25 20:04> Additional Instructions: Ultrasound does show that you have a subchorionic hemorrhage. There is also some nonspecific tachycardia. I do recommend following up with her OB in the morning about these results. Return to emergency department for new or worsening symptoms <Kavita Leos MD - Last Filed: 04/02/25 20:04> Prescriptions: No Action norgestimate-ethinyl estradiol [Tri-Sprintec (28)] 0.18/0.215/0.25 mg-35 mcg (28) tablet 1 tab PO QDAY magnesium oxide 500 mg magnesium tablet 500 mg PO QDAY docusate sodium [Colace] 100 mg capsule 100 mg PO QDAY calcium carbonate-vitamin D2 600 mg calcium- 200 unit tablet 2 tab PO metformin 500 mg tablet extended release 24 hr PO aspirin [Adult Aspirin Regimen] 81 mg tablet,delayed release (DR/EC) 81 mg PO DAILY insulin lispro 100 unit/mL insulin pen subcut Humalog KwikPen Insulin 200 unit/mL (3 mL) insulin pen SUBCUT Patient Comments: INJECT 33 UNITS BEFORE MEALS THREE TIMES DAILY. INCREASE BY 2 UNITS EVERY OTHER DAY IF POST MEAL GLUCOSE OVER 140. MAX 180 UNITS insulin glargine U-300 conc [Toujeo Max U-300 SoloStar] 300 unit/mL (3 mL) insulin pen SUBCUT Patient Comments: INJECT 80 UNITS SUBCUTANEOUSLY ONCE EACH EVENING. TITRATE INSTRUCTED IN UP TO MAX DOSE 150 UNITS PER DAY <Kavita Leos MD - Last Filed: 04/02/25 20:04> Follow Up/Referrals: Provider,Not a Local [Primary Care Provider, Family Practice] <Kavita Leos MD - Last Filed: 04/02/25 20:04> Stand Alone Forms: MyHealth Info Instructions <Kavita Leos MD - Last Filed: 04/02/25 20:04>
[2025-04-02 19:13] LABS: HCG Quantitative* 13696.00 mIU/mL
== END 2025-04-02 21:20 | disposition home or self-care (01) ==
PROVIDERS: Family Medicine; Emergency Provider Student in an Organized Health Care Education/Training Program
DX: O46.92 Antepartum hemorrhage, unspecified, second trimester (principal); Z3A.18 18 weeks gestation of pregnancy
CPT/HCPCS: 36415; 76815; 84702; 85025; 86900; 86901; 99283; 99284